=== PATIENT | female | born 1990 | race Caucasian/White ===

== ENCOUNTER 2016-05-20 01:19 | Inpatient (IN) | payer BC ==
[2016-05-20] MEDS ORDERED: TERBUTALINE 1 MG/ML VIAL SQ PRN (01:46)
[2016-05-20] MEDS ORDERED: OXYTOCIN 10 UNIT/ML 1 ML VIAL IM PRN (01:46)
[2016-05-20] MEDS ORDERED: CARBOPROST TROMETHAMINE 250 MCG/ML 1 ML AMP IM PRN (01:46)
[2016-05-20] MEDS ORDERED: METHYLERGONOVINE 0.2 MG/ML 1 ML AMP IM PRN (01:46)
[2016-05-20] MEDS ORDERED: LIDOCAINE 1% (PF) 10 MG/ML (30 ML SDV) SQ PRN (01:46)
[2016-05-20 01:56] VITALS: BMI 33.8
[2016-05-20] MEDS: LACTATED RINGERS 1,000 ML IV SCH ×2 (02:17→20:13)
[2016-05-20 02:35] LABS: Basophils # (A) 0.1 k/uL (0-0.2); Basophils % (A) 0 %; CHCM 33.6; Eosinophils # (A) 0.1 k/uL (0-0.7); Eosinophils % (A) 1 %; HDW 2.61; HGB 15.1 gm/dL (11.4-16.0); Luc # (Auto) 0.31; Luc % (Auto) 2; Lymphocytes # (A) 1.4 k/uL (1.0-4.8); Lymphocytes % (A) 10 %; MCH 30.5 pg (25.0-35.0); MCHC 32.8 g/dL (31.0-37.0); MCV 92.9 fL (80.0-100.0); Mean Platelet Volume 8.6; Monocytes # (A) 0.8 k/uL (0-1.0); Monocytes % (A) 6 %; Neutrophils # (A) 11.5 k/uL (1.3-7.7); Neutrophils % (A) 81 %; RBC 4.95 m/uL (3.80-5.40); RDW 13.3 % (11.5-15.5); WBC 14.2 k/uL (3.8-10.6)
[2016-05-20] MEDS ORDERED: BUTORPHANOL 1 MG/ML 1 ML VIAL IV PRN (03:10)
--- NOTE | 2016-05-20 04:05 | P.HPOB ---
History of Present Illness H&P Date: 05/20/16 Chief Complaint: Strong regular uterine contractions This is a 25-year-old white female 5 para 2012 EDC 06/02/2016 at 38 and one sevenths weeks. Patient presents with increased perineal pressure and strong regular uterine contractions. She denies vaginal bleeding or fluid leakage. She states fetus is been active throughout the . history blood type is O-, broke and received. Rubella immune. Be strep cultures negative. HIV testing, hepatitis B surface antigen, gonorrhea and chlamydia cultures, urine culture all negative. One-hour Glucola 82. Past surgical history is significant for low transverse section 2014 for nonreassuring heart tones. Past medical history is negative. ALLERGIES none known. Current medications vitamins daily. Family history is negative for significant disease. Reproductive history is significant for spontaneous vaginal delivery 2008, ectopic treated with methotrexate 2012, spontaneous AB 2013, low transverse section 2014. Social history patient is single, her boyfriend Bryson is present and involved, she is a flexographic press operator for a [employer], she is a nonsmoker and denies alcohol or drug use. On exam this is a pleasant white female, 5 foot 2 inches, 185 pounds, admission blood pressure 141/83. Vital signs are stable and she is afebrile. The general physical exam is within normal limits. The cervix at time of this dictation is 9 cm dilated, 90% effaced, -1 station, vertex presentation. Artificial amniorrhexis reveals clear fluid. heart rate is in the 130s to 140s with frequent accelerations, consistent with reactive NST. Impression: 38 and one sevenths weeks intrauterine , active spontaneous labor, Rh- status, previous choosing . All signs currently reassuring. Plan: Continue close maternal and surveillance. Anticipate vaginal after . Review of Systems See dictation under HPI,. Constitutional: Reports as per HPI Past Medical History Past Medical History: No Reported History History of Any Multi-Drug Resistant Organisms: None Reported Past Surgical History: Section Past Anesthesia/Blood Transfusion Reactions: No Reported Reaction Past Psychological History: No Psychological Hx Reported Smoking Status: Never smoker Past Alcohol Use History: None Reported Past Drug Use History: None Reported - Past Family History Mother Family Medical History: No Reported History Medications and Allergies Allergies Allergy/AdvReac Type Severity Reaction Status Date / Time No Known Allergies Allergy Verified 05/20/16 01:46 Exam - Vital Signs Vital signs: Vital Signs Temp Pulse Resp BP Pulse Ox 05/20/16 02:45 97.2 F L 84 19 141/83 98 05/20/16 01:48 97.2 F L 84 19 141/83 Intake and Output 05/19/16 05/19/16 05/20/16 14:59 22:59 06:59 Other: Weight 83.915 kg Patient Weight 05/20/16 06:59 Weight 83.915 kg See dictation HBIG, please Results Result Diagrams: 05/20/16 02:18 Abnormal Lab Results - Last 24 Hours (Table) 05/20/16 Range/Units 02:18 WBC 14.2 H (3.8-10.6) k/uL Neutrophils # 11.5 H (1.3-7.7) k/uL Assessment and Plan Plan: Continue close maternal and surveillance. Patient is declining option for analgesia. Anticipating vaginal after . Time with Patient: Less than 30
[2016-05-20] MEDS ORDERED: SIMETHICONE 80 MG CHEWABLE PO PRN (05:01)
[2016-05-20] MEDS ORDERED: diphenhydrAMINE 50 MG CAP PO PRN (05:01)
[2016-05-20] MEDS ORDERED: ZOLPIDEM 5 MG TAB PO PRN (05:01)
[2016-05-20] MEDS ORDERED: WITCH HAZEL 1 EACH MED..PAD TOPICAL PRN (05:01)
[2016-05-20] MEDS ORDERED: HYDROCORTISONE 2.5% RECTAL CREAM 30 GM TUBE RECTAL PRN (05:01)
[2016-05-20] MEDS ORDERED: LANOLIN CREAM 5 GM TUBE TOPICAL PRN (05:01)
[2016-05-20] MEDS ORDERED: diphenhydrAMINE ELIXIR 25 MG/10 ML CUP PO PRN (05:01)
[2016-05-20] MEDS ORDERED: diphenhydrAMINE 25 MG CAP PO PRN (05:01)
[2016-05-20] MEDS ORDERED: ACETAMINOPHEN TAB 325 MG TAB PO PRN (05:01)
[2016-05-20] MEDS ORDERED: BENZOCAINE/MENTHOL SPRAY 1 GM/SPRAY AEROSOL TOPICAL PRN (05:01)
[2016-05-20] MEDS ORDERED: diphenhydrAMINE 50 MG/ML 1 ML VIAL IVP PRN ×2 (05:01)
--- NOTE | 2016-05-20 05:01 | P.PROBDLV ---
Vaginal Delivery Note - . Vaginal Delivery Note: This is a 25-year-old white female 5 para 20-2 EDC 06/02/2016 at 38 and one sevenths weeks' gestation. Patient presented with strong regular uterine contractions and pelvic pressure. She was judged to be in active labor. was essentially unremarkable, Rh- status noted, broke and received, group B strep cultures negative, rubella status immune. Please see my dictated H&P for details. Artificial amniorrhexis revealed clear fluid. She was offered but declined any analgesic options. No oxytocin was needed. She progressed well through the first stage of labor and was judged to be completely dilated at 0432 hours. She began the second stage of labor at that time. Perineal body was prepped and draped in usual sterile fashion. With good maternal expulsive efforts the head was delivered occiput anterior. He restituted accordingly. There was a nuchal cord 2 that was reduced on the perineal body. The left or anterior shoulder was then delivered from underneath the pubic symphysis at which time the oropharynx, nasopharynx, and external nares were all bulb suctioned thoroughly. Patient was delivered of a liveborn female infant at 0438 hours. Umbilical cord was doubly clamped and ligated, he was handed to waiting nurses for evaluation where scores of 8 and 9 at one and 5 minutes respectively were given. The placenta delivered spontaneously, it was inspected and noted to be intact with trivascular cord at 0443 hours. At this time the perineal body was redraped. Inspection of the cervix, vagina, perineum, periurethral, and perirectal areas revealed a small first-degree right labial laceration. This was repaired in the usual fashion using 3-0 Vicryl suture for excellent reapproximation. Fundus is firm and in the midline , symmetric and 18 week size upon completion of delivery. Estimated blood loss 400 mL's. Infant weighed 3-40 g or 7 lbs. 2 oz. All sponge, needle and instrument counts are correct at the end of the procedure. Patient and her boyfriend are requesting circumcision further son. Successful VBACs noted.
[2016-05-20] MEDS: OXYTOCIN 30 UNITS/500 ML NS 30 UNIT in SALINE 1 500ML.BAG IV SCH ×2 (05:24→20:11)
[2016-05-20] MEDS: IBUPROFEN 600 MG TAB PO PRN ×3 (09:29→22:21)
[2016-05-20] MEDS: SENNOSIDES-DOCUSATE SODIUM 1 EACH TAB PO SCH ×2 (09:58→20:14)
[2016-05-20] MEDS: Acetaminophen-Codeine 300-30mg TAB PO PRN ×2 (12:36→18:06)
[2016-05-21] MEDS: Acetaminophen-Codeine 300-30mg TAB PO PRN (04:25)
--- NOTE | 2016-05-21 11:15 | P.PNOBGVD ---
Subjective - Subjective Patient reports: Reports appetite normal, Reports voiding normally, Reports pain well controlled, Reports ambulating normally : doing well, nursing well Objective - Latest Vital Signs Latest vital signs: Vital Signs Temp Pulse Resp BP Pulse Ox 05/21/16 08:00 98.3 F 110 H 20 122/75 98 05/20/16 23:32 97.8 F 81 16 113/61 05/20/16 15:30 98.3 F 95 127 H 127/82 05/20/16 12:00 98.1 F 87 16 Intake and Output 05/20/16 05/21/16 05/21/16 22:59 06:59 14:59 Intake Total 240 Balance 240 Intake: Oral 240 - Exam Lungs: bilateral: normal Chest: Normal S1, Normal S2 Extremities: Present: normal Abdomen: Present: normal appearance, soft Uterus: Present: normal, firm (The uterine fundus is tonic and nontender at the umbilicus.) Assessment and Plan (1) (normal spontaneous vaginal delivery) Current Visit: Yes Status: Acute Code(s): O80 - ENCOUNTER FOR FULL-TERM UNCOMPLICATED DELIVERY SNOMED Code(s): 47156275 (2) , delivered Narrative/Plan: We will plan discharge later today assuming the infant is released. Continue routine care. Current Visit: Yes Status: Acute Code(s): O34.219 - MATERNAL CARE FOR UNSP TYPE SCAR FROM PREVIOUS DEL SNOMED Code(s): 947996991
--- NOTE | 2016-05-21 11:20 | P.DS ---
Providers Date of admission: 05/20/16 01:27 Expected date of discharge: 05/21/16 Attending physician: Wilian Hamm Primary care physician: Stated None - Discharge Diagnosis(es) (1) (normal spontaneous vaginal delivery) Current Visit: Yes Status: Acute (2) , delivered Current Visit: Yes Status: Acute Hospital Course: The patient is a 25-year-old 5 para 2012 admitted at 38 and one sevenths weeks by good dating parameters perches admitted in early active labor with all signs reassuring. Her has been uncomplicated though she does have a history of previous section and requested vaginal trial of labor having had one successful vaginal delivery preceding the section.. On labor and delivery, she had artificial rupture of membranes for clear fluid and made fairly rapid progress through the active phase of labor to complete. She pushed to a normal spontaneous vaginal delivery, successful : over the course of approximate 5 minutes and delivered a viable 7 lbs. 2 oz. baby boy with Apgars of 8 at 1 minute and 9 at 5 minutes. Her course was entirely unremarkable vital signs remained stable and her temperature was afebrile throughout. She was deemed stable for discharge by day #1 was discharged home to follow-up in the office in 6 weeks' time routinely. Discharge instructions included calling for any significantly increased bleeding or foul-smelling lochia, significantly increased fever or abdominal pain, perineal complaints, breast complaints, or anything else that concerned her. She was additionally instructed to have nothing in the vagina for at least 6 weeks time to include intercourse. She understood her instructions and agrees to follow up as noted above. Discharge medications included continued vitamins as she has opted to breast-feed. She additionally was to use [id number] analgesic pain medications as needed. Maternal blood type is O- and cord blood was sent for evaluation for the necessity of RhoGAM prior to discharge. Rubella status is immune. Procedures: #1. Artificial rupture of membranes #2. Normal spontaneous vaginal delivery Patient Condition at Discharge: Good Plan - Discharge Summary Discharge Medication List Rfw-Kryo-Mqheh Acid [-U Capsule] 1 each PO DAILY #30 cap [Rx] Follow up Appointment(s)/Referral(s): Wilian Hamm MD [STAFF PHYSICIAN] - 6 Weeks Discharge Disposition: HOME SELF-CARE
[2016-05-21] MEDS: SENNOSIDES-DOCUSATE SODIUM 1 EACH TAB PO SCH (17:09)
[2016-05-22 00:48] VITALS: RESP 16
[2016-05-22] MEDS: SENNOSIDES-DOCUSATE SODIUM 1 EACH TAB PO SCH ×2 (00:49→08:34)
[2016-05-22 08:53] VITALS: BP 118/58; PULSE 78; TEMP 97.3
--- NOTE | 2016-05-22 12:32 | P.PNOBGVD ---
Subjective - Subjective Patient reports: Reports appetite normal, Reports voiding normally, Reports pain well controlled, Reports ambulating normally [place]: doing well Objective - Latest Vital Signs Latest vital signs: Vital Signs Temp Pulse Resp BP Pulse Ox 05/22/16 08:00 97.3 F L 78 16 118/58 05/22/16 00:00 98.3 F 86 16 115/72 05/21/16 16:00 99.2 F 100 20 117/61 95 - Exam Lungs: bilateral: normal Chest: Normal S1, Normal S2 Extremities: Present: normal Abdomen: Present: normal appearance, soft Uterus: Present: normal, firm (Uterine fundus is tonic and nontender around the umbilicus.) Assessment and Plan (1) (normal spontaneous vaginal delivery) Current Visit: Yes Status: Acute Code(s): O80 - ENCOUNTER FOR FULL-TERM UNCOMPLICATED DELIVERY SNOMED Code(s): 40413040 (2) , delivered Narrative/Plan: The patient was scheduled to be discharged yesterday. However, the infant was kept in the hospital secondary to elevated bilirubin leading to delay of the patient's discharge until today. All of the dictation and instructions in the discharge summary still pertain with a new discharge date of 05/22/2016. She will continue to have routine care and be discharged later today as previously documented. The infant may require continuing with a bili blanket in the outpatient setting. Current Visit: Yes Status: Acute Code(s): O34.219 - MATERNAL CARE FOR UNSP TYPE SCAR FROM PREVIOUS DEL SNOMED Code(s): 059021308
== END 2016-05-22 18:30 | disposition home or self-care (01) | DRG 775 ==
LOC: FBPOP 01:19 → 4FBP 01:27
PROVIDERS: ADMIT Obstetrics & Gynecology; ATTEND Obstetrics & Gynecology
PROC: 10E0XZZ Delivery of Products of Conception, External Approach (ICD-10-PCS; principal; 2016-05-20)
PROC: 10907ZC Drainage of Amniotic Fluid, Therapeutic from Products of Conception, Via Natural or Artificial Opening (ICD-10-PCS; 2016-05-20)
PROC: 0HQ9XZZ Repair Perineum Skin, External Approach (ICD-10-PCS; 2016-05-20)
DX: O70.0 First degree perineal laceration during delivery (principal); N85.8 Other specified noninflammatory disorders of uterus; O34.211 Maternal care for low transverse scar from previous cesarean delivery; O69.81X0 Labor and delivery complicated by cord around neck, without compression, not applicable or unspecified; Z3A.38 38 weeks gestation of pregnancy; Z37.0 Single live birth
CPT/HCPCS: 85025; 86850; 86870; 86880; 86900; 86901; 88307

== ENCOUNTER 2016-06-25 17:36 | Observation (INO) | payer BC, OTHER ==
[2016-06-25] MEDS ORDERED: SODIUM CHLORIDE 0.9% 1,000 ML IV STA (18:03)
[2016-06-25] MEDS ORDERED: KETOROLAC 30 MG/ML 1 ML VIAL IVP STA (18:03)
[2016-06-25] MEDS ORDERED: ONDANSETRON 4 MG/2 ML VIAL IVP STA (18:03)
--- NOTE | 2016-06-25 18:07 | ED ---
Abdominal Pain HPI <Neeraj Milton - Last Filed: 06/25/16 21:32> - General Source: patient, RN notes reviewed, old records reviewed Mode of arrival: ambulatory Limitations: no limitations <Shawanda Fu - Last Filed: 06/26/16 03:46> - General Chief Complaint: Abdominal Pain Stated Complaint: abd pain Time Seen by Provider: 06/25/16 17:44 - History of Present Illness Initial Comments: This is a 25-year-old female chief complaint of right upper quadrant epigastric abdominal pain intermittently for the past few months. Patient reports that over the past 2 weeks and more severe. She states that is not related to eating. She states she'll feel like a sharp stabbing pain for approximately an hour and then will ease up. Patient states that she's had this pain before when she was . She reports that she had an ultrasound which was negative at that time. She states that they stated it was a limited study due to the fact that she was . Patient states that she has had chills. Patient states she feels nauseated and has had some episodes of vomiting. Denies any diarrhea or change in bowel movements or dysuria. (Shawanda Fu) - Related Data Home Medications Medication Instructions Recorded Confirmed Mqp-Vzzc-Zujni Acid 1 cap PO DAILY 06/25/16 06/25/16 [-U Capsule (formulary)] Allergies Allergy/AdvReac Type Severity Reaction Status Date / Time No Known Allergies Allergy Verified 06/25/16 17:55 Review of Systems ROS Other: All systems not noted in ROS Statement are negative. <Neeraj Milton - Last Filed: 06/25/16 21:32> ROS Other: All systems not noted in ROS Statement are negative. <Shawanda Fu - Last Filed: 06/26/16 03:46> ROS Statement: Those systems with pertinent positive or pertinent negative responses have been documented in the HPI. Past Medical History Past Medical History: No Reported History History of Any Multi-Drug Resistant Organisms: None Reported Past Surgical History: Section Past Anesthesia/Blood Transfusion Reactions: No Reported Reaction Past Psychological History: No Psychological Hx Reported Smoking Status: Never smoker Past Alcohol Use History: None Reported Past Drug Use History: None Reported - Past Family History Mother Family Medical History: No Reported History <Shawanda Fu - Last Filed: 06/26/16 03:46> General Exam <Neeraj Milton - Last Filed: 06/25/16 21:32> Limitations: no limitations General appearance: alert, in no apparent distress Head exam: Present: atraumatic, normocephalic, normal inspection Eye exam: Present: normal appearance, PERRL, EOMI. Absent: scleral icterus, conjunctival injection, periorbital swelling ENT exam: Present: normal exam, mucous membranes moist Neck exam: Present: normal inspection. Absent: tenderness, meningismus, lymphadenopathy Respiratory exam: Present: normal lung sounds bilaterally. Absent: respiratory distress, wheezes, rales, rhonchi, stridor Cardiovascular Exam: Present: regular rate, normal rhythm, normal heart sounds. Absent: systolic murmur, diastolic murmur, rubs, gallop, clicks GI/Abdominal exam: Present: soft, tenderness (Patient has epigastric and right upper quadrant tenderness.), normal bowel sounds. Absent: distended, guarding, rebound, rigid Extremities exam: Present: normal inspection, full ROM, normal capillary refill. Absent: tenderness, pedal edema, joint swelling, calf tenderness Back exam: Present: normal inspection Neurological exam: Present: alert, oriented X3, CN II-XII intact Psychiatric exam: Present: normal affect, normal mood Skin exam: Present: warm, dry, intact, normal color. Absent: rash <Shawanda Fu - Last Filed: 06/26/16 03:46> - General Exam Comments Initial Comments: Pleasant 25-year-old female. No distress. (Shawanda Fu) Course <Neeraj Milton - Last Filed: 06/25/16 21:32> <Shawanda Fu - Last Filed: 06/26/16 03:46> Vital Signs 06/25/16 06/25/16 06/25/16 17:45 19:22 20:45 Temperature 97.8 F 98.6 F 98.6 F Pulse Rate 82 76 75 Respiratory 16 18 18 Rate Blood Pressure 130/65 119/69 122/70 O2 Sat by Pulse 98 96 89 L Oximetry 06/25/16 21:54 Temperature 98.7 F Pulse Rate 68 Respiratory 18 Rate Blood Pressure 139/66 O2 Sat by Pulse 98 Oximetry - Reevaluation(s) Reevaluation #1: 06/25/16 21:35 Vision is reevaluated in one of her results. Patient reports that she doesn't have any pain at this time. Discussed with her admission and starting on IV antibiotics. I also discussed consult surgery and having her gallbladder removed. (Shawanda Fu) Medical Decision Making - Lab Data Result diagrams: 06/25/16 18:30 06/25/16 18:30 <Neeraj Milton - Last Filed: 06/25/16 21:32> - Lab Data Result diagrams: 06/25/16 18:30 06/25/16 18:30 - Radiology Data Radiology results: report reviewed <Shawanda Fu - Last Filed: 06/26/16 03:46> - Medical Decision Making Medical decision-making. Patient's white count is 14.5 hemoglobin 15.9 hematocrit 47.6. Temp 98.6. Patient's potassium is 4.1 BUN 15 creatinine 0.83 with a GFR greater than 60. The patient's total bilirubin is normal at 0.8 but the AST is 150 ALT is 100 alk phos is 204. Glucose 91. Amylase lipase within normal limits. Patient is not . Though she did deliver a baby 3 weeks ago. Patient's had abdominal pain to right upper quadrant with nausea and occasional vomiting for the past week this also occurred prior prior to this week. Ultrasound shows cholelithiasis without evidence of cholecystitis. Common bile duct 0.5. The case discussed with Dr. Dr. Desouza, on-call general surgeon patient be admitted his service for evaluation. She will be started on Zosyn. Dr. Milton (Neeraj Milton) This is a 25-year-old female chief complaint of intermittent right upper quadrant epigastric pain. She states that the pain has became more severe within the past 2 weeks. She did have a child within the last month. Patient right upper quadrant ultrasound does show cholelithiasis without evidence of cholecystitis. She does have an elevated white count of 14.5. Patient will be started on Zosyn. Discussed case with Dr. Milton and we will admit the patient to Dr. Desouza the on-call surgeon. Patient agrees with the admission and understands the treatment plan. (Shawanda Fu) - Lab Data Lab Results 06/25/16 06/25/16 06/25/16 Range/Units 18:30 18:30 18:30 WBC 14.5 H (3.8-10.6) k/uL RBC 5.39 (3.80-5.40) m/uL Hgb 15.9 (11.4-16.0) gm/dL Hct 47.6 H (34.0-46.0) % MCV 88.2 (80.0-100.0) fL MCH 29.5 (25.0-35.0) pg MCHC 33.4 (31.0-37.0) g/dL RDW 12.4 (11.5-15.5) % Plt Count 292 (150-450) k/uL Neutrophils % 81 % Lymphocytes % 12 % Monocytes % 5 % Eosinophils % 1 % Basophils % 0 % Neutrophils # 11.7 H (1.3-7.7) k/uL Lymphocytes # 1.8 (1.0-4.8) k/uL Monocytes # 0.8 (0-1.0) k/uL Eosinophils # 0.1 (0-0.7) k/uL Basophils # 0.0 (0-0.2) k/uL Sodium 141 (137-145) mmol/L Potassium 4.1 (3.5-5.1) mmol/L Chloride 103 (98-107) mmol/L Carbon Dioxide 31 H (22-30) mmol/L Anion Gap 7 mmol/L BUN 15 (7-17) mg/dL Creatinine 0.83 (0.52-1.04) mg/dL Est GFR (MDRD) Af Amer >60 (>60 ml/min/1.73 sqM) Est GFR (MDRD) Non-Af >60 (>60 ml/min/1.73 sqM) Glucose 91 (74-99) mg/dL Calcium 9.4 (8.4-10.2) mg/dL Total Bilirubin 0.8 (0.2-1.3) mg/dL AST 153 H (14-36) U/L ALT 100 H (9-52) U/L Alkaline Phosphatase 204 H (38-126) U/L Total Protein 7.5 (6.3-8.2) g/dL Albumin 3.7 (3.5-5.0) g/dL Amylase 56 (30-110) U/L Lipase 67 (23-300) U/L Urine Color Yellow Urine Appearance Clear (Clear) Urine pH 6.0 (5.0-8.0) Ur Specific [place] 1.018 (1.001-1.035) Urine Protein Trace H (Negative) Urine Glucose (UA) Negative (Negative) Urine Ketones Negative (Negative) Urine Blood Trace H (Negative) Urine Nitrite Negative (Negative) Urine Bilirubin Negative (Negative) Urine Urobilinogen <2.0 (<2.0) mg/dL Ur Leukocyte Esterase Moderate H (Negative) Urine RBC 3 (0-5) /hpf Urine WBC 8 H (0-5) /hpf Ur Squamous Epith Cells 3 (0-4) /hpf Urine Mucus Rare H (None) /hpf Urine HCG, Qual (Not Detectd) 06/25/16 Range/Units 18:30 WBC (3.8-10.6) k/uL RBC (3.80-5.40) m/uL Hgb (11.4-16.0) gm/dL Hct (34.0-46.0) % MCV (80.0-100.0) fL MCH (25.0-35.0) pg MCHC (31.0-37.0) g/dL RDW (11.5-15.5) % Plt Count (150-450) k/uL Neutrophils % % Lymphocytes % % Monocytes % % Eosinophils % % Basophils % % Neutrophils # (1.3-7.7) k/uL Lymphocytes # (1.0-4.8) k/uL Monocytes # (0-1.0) k/uL Eosinophils # (0-0.7) k/uL Basophils # (0-0.2) k/uL Sodium (137-145) mmol/L Potassium (3.5-5.1) mmol/L Chloride (98-107) mmol/L Carbon Dioxide (22-30) mmol/L Anion Gap mmol/L BUN (7-17) mg/dL Creatinine (0.52-1.04) mg/dL Est GFR (MDRD) Af Amer (>60 ml/min/1.73 sqM) Est GFR (MDRD) Non-Af (>60 ml/min/1.73 sqM) Glucose (74-99) mg/dL Calcium (8.4-10.2) mg/dL Total Bilirubin (0.2-1.3) mg/dL AST (14-36) U/L ALT (9-52) U/L Alkaline Phosphatase (38-126) U/L Total Protein (6.3-8.2) g/dL Albumin (3.5-5.0) g/dL Amylase (30-110) U/L Lipase (23-300) U/L Urine Color Urine Appearance (Clear) Urine pH (5.0-8.0) Ur Specific [place] (1.001-1.035) Urine Protein (Negative) Urine Glucose (UA) (Negative) Urine Ketones (Negative) Urine Blood (Negative) Urine Nitrite (Negative) Urine Bilirubin (Negative) Urine Urobilinogen (<2.0) mg/dL Ur Leukocyte Esterase (Negative) Urine RBC (0-5) /hpf Urine WBC (0-5) /hpf Ur Squamous Epith Cells (0-4) /hpf Urine Mucus (None) /hpf Urine HCG, Qual Not Detected (Not Detectd) - Radiology Data KUB is negative for any acute results. Right upper quadrant ultrasound does show evidence of cholelithiasis. (Shawanda Fu) Disposition <Neeraj Milton - Last Filed: 06/25/16 21:32> Time of Disposition: 21:37 <Shawanda Fu - Last Filed: 06/26/16 03:46> Clinical Impression: Cholelithiasis, RUQ pain, Leukocytosis Disposition: ADMITTED IP TO THIS [facility] Condition: Stable
[2016-06-25 18:59] LABS: Basophils % (A) 0 %; CH 30.5; CHCM 34.7; Eosinophils # (A) 0.1 k/uL (0-0.7); Eosinophils % (A) 1 %; HCT 47.6 % (34.0-46.0); HDW 2.37; HGB 15.9 gm/dL (11.4-16.0); Luc # (Auto) 0.16; Luc % (Auto) 1; Lymphocytes # (A) 1.8 k/uL (1.0-4.8); Lymphocytes % (A) 12 %; MCH 29.5 pg (25.0-35.0); MCHC 33.4 g/dL (31.0-37.0); MCV 88.2 fL (80.0-100.0); Mean Platelet Volume 6.1; Monocytes # (A) 0.8 k/uL (0-1.0); Monocytes % (A) 5 %; Neutrophils # (A) 11.7 k/uL (1.3-7.7); Neutrophils % (A) 81 %; RBC 5.39 m/uL (3.80-5.40); RDW 12.4 % (11.5-15.5); WBC 14.5 k/uL (3.8-10.6); WBC (Perox) 14.27
[2016-06-25 19:04] LABS: Appearance,Urine Clear (Clear); Bilirubin,Urine Negative (Negative); Glucose,Urine (UA) Negative (Negative); Ketones,Urine Negative (Negative); Leukocyte Esterase,Urine Moderate (Negative); Mucus,Urine Rare /hpf; Nitrite,Urine Negative (Negative); Particle Count 3068; Protein,Urine Trace (Negative); RBC,Urine 3 /hpf (0-5); Specific Gravity,Urine 1.018 (1.001-1.035); Squamous Epithelial Cell,Urine 3 /hpf (0-4); UA Billing (MACRO vs. MICRO) MICRO; Urobilinogen,Urine <2.0 mg/dL (<2.0); WBC,Urine 8 /hpf (0-5)
[2016-06-25 19:19] LABS: ALT 100 U/L (9-52); AST 153 U/L (14-36); Alkaline Phosphatase 204 U/L (38-126); Amylase 56 U/L (30-110); Anion Gap 7 mmol/L; Blood Urea Nitrogen 15 mg/dL (7-17); Calcium 9.4 mg/dL (8.4-10.2); Carbon Dioxide 31 mmol/L (22-30); Chloride 103 mmol/L (98-107); Glucose 91 mg/dL (74-99); Non-African American GFR(MDRD) >60 (>60 ml/min/1.73 sqM); Potassium 4.1 mmol/L (3.5-5.1); Sodium 141 mmol/L (137-145); Total Bilirubin 0.8 mg/dL (0.2-1.3); Total Protein 7.5 g/dL (6.3-8.2)
--- NOTE | 2016-06-25 20:06 | XR ---
EXAMINATION TYPE: XR KUB DATE OF EXAM: 06/25/2016 7:46 PM COMPARISON: NONE INDICATION: Abdomen pain TECHNIQUE: Single view abdomen upright view FINDINGS: There is a normal bowel gas pattern. Psoas margins are normal. No organomegaly is present. There is mild scoliosis within the lumbar spine. IMPRESSION: 1. Unremarkable Abdomen
--- NOTE | 2016-06-25 21:22 | US ---
EXAMINATION TYPE: US gallbladder DATE OF EXAM: 06/25/2016 7:12 PM COMPARISON: NONE CLINICAL HISTORY: Pain. EXAM MEASUREMENTS: Liver Length: 15.6 cm Gallbladder Wall: 0.2 cm CBD: 0.5 cm Right Kidney: 11.9 x 4.0 x 4.6 cm Pancreas: Tail obscured by overlying bowel gas Liver: wnl Gallbladder: cholelithiasis, no wall thickening Evidence for sonographic Gutierrez's sign: no CBD: wnl Right Kidney: wnl IMPRESSION: 1. Cholelithiasis without evidence of acute cholecystitis.
[2016-06-25] MEDS ORDERED: PIPERACILLIN-TAZOBACTAM 3.375 GM in DEXTROSE/WATER 1 50ML.BAG IVPB STA (21:26)
[2016-06-25] MEDS ORDERED: HYDROmorphone 1 MG/ML 1 ML SYRINGE IV PRN (21:39)
[2016-06-25] MEDS ORDERED: KETOROLAC 30 MG/ML 1 ML VIAL IVP PRN (21:39)
[2016-06-25] MEDS ORDERED: NALOXONE 0.4 MG/ML 1 ML VIAL IV PRN (21:39)
[2016-06-25] MEDS: SODIUM CHLORIDE 0.9% 1,000 ML IV SCH (21:51)
[2016-06-25 22:27] VITALS: BMI 29.2
[2016-06-26] MEDS: PIPERACILLIN-TAZOBACTAM 3.375 GM in DEXTROSE/WATER 1 50ML.BAG IVPB SCH ×2 (08:21→16:54)
[2016-06-26 09:05] LABS: Basophils # (A) 0.1 k/uL (0-0.2); Basophils % (A) 1 %; CHCM 33.3; Eosinophils # (A) 0.2 k/uL (0-0.7); Eosinophils % (A) 3 %; HCT 46.5 % (34.0-46.0); HDW 2.36; HGB 15.2 gm/dL (11.4-16.0); Luc # (Auto) 0.18; Luc % (Auto) 2; Lymphocytes # (A) 2.1 k/uL (1.0-4.8); Lymphocytes % (A) 24 %; MCH 29.6 pg (25.0-35.0); MCHC 32.7 g/dL (31.0-37.0); MCV 90.5 fL (80.0-100.0); Mean Platelet Volume 6.4; Monocytes # (A) 0.6 k/uL (0-1.0); Monocytes % (A) 7 %; Neutrophils # (A) 5.5 k/uL (1.3-7.7); Neutrophils % (A) 63 %; RBC 5.14 m/uL (3.80-5.40); RDW 12.4 % (11.5-15.5); WBC 8.7 k/uL (3.8-10.6); WBC (Perox) 8.34
--- NOTE | 2016-06-26 09:14 | P.HPIM ---
History of Present Illness H&P Date: 06/26/16 Chief Complaint: Right upper quadrant abdominal pain The patient is a 25 white female who's had intermittent upper abdominal pain mostly epigastric right upper quadrant with some radiation to the back off and on for several years now. Worse over the last week or 2. She did have a baby by normal delivery of the 5 weeks ago. Some nausea. Ultrasound showed cholelithiasis. No evidence of acute cholecystitis radiographically. Past history otherwise healthy. C/ Section with her second child. ALLERGIES none known Social history nonsmoker denies alcohol. Family history positive for gallbladder disease in her mother and aunt. Systems review reviewed. Otherwise essentially negative other than above. No cardiac or respiratory problems. No vaginal discharge. No urinary symptoms. On examination the patient is well-built well-nourished in no acute distress at this time pain has somewhat resolved resolved to improve. She is a little overweight with a BMI of 29.3. She is anicteric hydration satisfactory color is good. Vitals are normal. No fever. Head and neck are normal. Heart lungs are clear. Abdomen is quite soft with minimal epigastric tenderness. No guarding or rebound. No mass or organomegaly. No hernias. Has well-healed scar. INSTRUMENT MAKER intact. Impression cholelithiasis with the acute biliary colic chronic cholecystitis. Recommendation patient will be admitted with IV fluids liquid diet antibiotics and proceed with the laparoscopic cholecystectomy possible open and the next day or so. Will R recheck this WBC which was elevated as well as her LFTs were mildly elevated although bilirubin was normal. Past Medical History Past Medical History: No Reported History History of Any Multi-Drug Resistant Organisms: None Reported Past Surgical History: Section Past Anesthesia/Blood Transfusion Reactions: No Reported Reaction Past Psychological History: No Psychological Hx Reported Smoking Status: Never smoker Past Alcohol Use History: None Reported Past Drug Use History: None Reported - Past Family History Mother Family Medical History: No Reported History Medications and Allergies Home Medications Medication Instructions Recorded Confirmed Type [id number]-[id number]-[id number] Acid 1 cap PO DAILY 06/25/16 06/25/16 History [-U Capsule (formulary)] Allergies Allergy/AdvReac Type Severity Reaction Status Date / Time No Known Allergies Allergy Verified 06/25/16 17:55 Physical Exam Vitals: Vital Signs Temp Pulse Pulse Resp BP BP Pulse Ox 06/26/16 06:47 97 F L 64 14 102/63 97 06/25/16 23:52 97 F L 64 14 102/63 97 06/25/16 23:01 16 06/25/16 23:00 97.1 F L 65 16 122/70 96 06/25/16 22:15 98.1 F 75 16 118/68 95 06/25/16 21:54 98.7 F 68 18 139/66 98 Intake and Output 06/25/16 06/26/16 06/26/16 22:59 06:59 14:59 Other: Voiding Method Toilet # Voids 1 Weight 72.575 kg Results CBC & Chem 7: 06/26/16 08:48 06/25/16 18:30 Labs: Abnormal Lab Results - Last 24 Hours (Table) 06/26/16 Range/Units 08:48 Hct 46.5 H (34.0-46.0) % Thrombosis Risk Factor Assmnt - Choose All That Apply Any of the Below Risk Factors Present?: Yes Each Factor Represents 1 point: Obesity (BMI >25), or Other Risk Factors: No Thrombosis Risk Factor Assessment Total Risk Factor Score: 2 Thrombosis Risk Factor Assessment Level: Low Risk
[2016-06-26 09:18] LABS: ALT 134 U/L (9-52); AST 79 U/L (14-36); Alkaline Phosphatase 196 U/L (38-126); Anion Gap 7 mmol/L; Blood Urea Nitrogen 17 mg/dL (7-17); Calcium 9.1 mg/dL (8.4-10.2); Carbon Dioxide 26 mmol/L (22-30); Chloride 109 mmol/L (98-107); Glucose 84 mg/dL (74-99); Non-African American GFR(MDRD) >60 (>60 ml/min/1.73 sqM); Potassium 4.5 mmol/L (3.5-5.1); Sodium 142 mmol/L (137-145); Total Bilirubin 0.7 mg/dL (0.2-1.3); Total Protein 6.6 g/dL (6.3-8.2)
[2016-06-26] MEDS: PANTOPRAZOLE 40 MG/10 ML VIAL IV SCH (09:45)
[2016-06-26] MEDS: SODIUM CHLORIDE 0.9% 1,000 ML IV SCH (12:29)
[2016-06-26] MEDS: HEPARIN SODIUM,PORCINE 5,000 UNIT/ML 1 ML VIAL SQ SCH (21:36)
[2016-06-27] MEDS: PIPERACILLIN-TAZOBACTAM 3.375 GM in DEXTROSE/WATER 1 50ML.BAG IVPB SCH ×3 (00:38→16:01)
[2016-06-27] MEDS: SODIUM CHLORIDE 0.9% 1,000 ML IV SCH ×3 (00:42→14:41)
[2016-06-27] MEDS: HEPARIN SODIUM,PORCINE 5,000 UNIT/ML 1 ML VIAL SQ SCH ×2 (09:27→22:50)
[2016-06-27] MEDS: PANTOPRAZOLE 40 MG/10 ML VIAL IV SCH (09:31)
[2016-06-27] MEDS ORDERED: IV FLUID CONTINUATION 1,000 ML IV ONE ×5 (11:19→11:20)
[2016-06-27] MEDS ORDERED: NEOSTIGMINE 1 MG/ML 10 ML VIAL ONE (11:40)
[2016-06-27] MEDS ORDERED: MEPERIDINE 50 MG/ML SYRINGE ONE (11:40)
[2016-06-27] MEDS ORDERED: GLYCOPYRROLATE 0.2 MG/ML 2 ML VIAL ONE (11:40)
[2016-06-27] MEDS ORDERED: fentaNYL (PF) 50 MCG/ML 2 ML AMP ONE (11:40)
[2016-06-27] MEDS ORDERED: LIDOCAINE 1% INJ 10MG/ML (20 ML MDV) ONE (11:40)
[2016-06-27] MEDS ORDERED: KETOROLAC 30 MG/ML 1 ML VIAL ONE (11:40)
[2016-06-27] MEDS ORDERED: PROPOFOL 10 MG/ML 20 ML VIAL IV ONE (11:40)
[2016-06-27] MEDS ORDERED: MIDAZOLAM 2 MG/2 ML VIAL ONE (11:40)
[2016-06-27] MEDS ORDERED: ROCURONIUM BROMIDE 10 MG/ML 10 ML VIAL IV ONE (11:40)
[2016-06-27] MEDS ORDERED: SUCCINYLCHOLINE CHLORIDE 100 MG/5 ML SYR IV ONE (11:40)
[2016-06-27] MEDS ORDERED: LACTATED RINGERS 1,000 ML IV ONE (12:03)
[2016-06-27] MEDS ORDERED: BUPIVACAINE (PF) 0.25% 30 ML VIAL SQ ONE ×2 (12:09)
--- NOTE | 2016-06-27 12:56 | P.OP ---
Date of Procedure: 06/27/16 Preoperative Diagnosis: Cholelithiasis with acute on chronic cholecystitis Postoperative Diagnosis: Same Procedure(s) Performed: Laparoscopic cholecystectomy Anesthesia: GRIFFIN Surgeon: Francesco Desouza Estimated Blood Loss (ml): 25 Pathology: other (Gallbladder with stones) Condition: stable Disposition: PACU Indications for Procedure: Right upper quadrant pain with cholelithiasis acute cholecystitis with leukocytosis Operative Findings: Acute cholecystitis on chronic cholecystitis with cholelithiasis Description of Procedure: With the patient supine the under general endotracheal anesthesia the abdominal wall was prepped in the usual fashion and draped. Local anesthetic Marcaine 0.5 % plain was infiltrated into the skin and subcutaneous tissue just below the umbilicus where a small transverse incision was made. The fascia was exposed and retracted and infiltrated with the Marcaine and a Veress needle inserted under direct vision. The saline drop test was normal the peritoneal cavity was then inflated with carbon dioxide to pressure approximately 15 mm millimeters mercury the needle was replaced with a 10 mm trocar and the laparoscope inserted. 25 mm trochars were placed in the right upper quadrant and another 5 mm trocar in the epigastrium under direct vision under local anesthesia. Visual exploration revealed this mild to moderately distended gallbladder with mild inflammatory changes. The gallbladder was retracted. The area of the neck carefully dissected with omental adhesions to the gallbladder being February good hemostasis. The cystic duct was identified school he denies any junction with the gallbladder, duct well visualized the cystic duct was then triply clipped and divided as was the cystic artery. The gallbladder dissected from its bed and removed through the umbilical port site the abdomen Endo Catch bag. Upper and infrahepatic spaces were then thoroughly irrigated. Hemostasis was good and the field was dry. CO2 was evacuated. Fascial incision at the umbilicus closed with interrupted 0 Vicryl sutures after all trochars were removed. The skin incisions were closed with interrupted 4-0 Monocryl subcuticular sutures and Steri-Strips. Dressings were applied. Patient remained stable.
[2016-06-27] MEDS ORDERED: ONDANSETRON 4 MG/2 ML VIAL IVP PRN (13:01)
[2016-06-27] MEDS ORDERED: ONDANSETRON 4 MG/2 ML VIAL IVP ONE ×2 (13:13)
[2016-06-27] MEDS: HYDROmorphone 1 MG/ML 1 ML SYRINGE IVP ONE ×2 (13:24→13:46)
[2016-06-28] MEDS: SODIUM CHLORIDE 0.9% 1,000 ML IV SCH (00:26)
[2016-06-28] MEDS: PIPERACILLIN-TAZOBACTAM 3.375 GM in DEXTROSE/WATER 1 50ML.BAG IVPB SCH (00:26)
[2016-06-28 18:37] VITALS: BP 105/71; PULSE 71; RESP 16; TEMP 97.3
--- NOTE | 2016-07-08 12:26 | P.DS ---
Providers Date of admission: 06/25/16 21:34 Attending physician: Francesco Desouza Primary care physician: Stated None Patient Condition at Discharge: Stable Plan - Discharge Summary New Discharge Prescriptions: Hydrocodone/Acetaminophen [[place] 5-325] 1 each PO Q4HR PRN #20 tab PRN Reason: Moderate Pain Discharge Medication List Cbn-[id number]-Yveye Acid [-U Capsule (formulary)] 1 cap PO DAILY [History] Hydrocodone/Acetaminophen [[place] 5-325] 1 each PO Q4HR PRN #20 tab 06/27/16 [Rx] Follow up Appointment(s)/Referral(s): Francesco Desouza MD [STAFF PHYSICIAN] - 07/04/16 2:00 pm None,Stated [Primary Care Provider] - As Needed Activity/Diet/Wound Care/Special Instructions: Low fat diet, no heavy lifting for 9 to 10 days.. Remove dressings tomorrow am. May shower from dex am. Ambulate 4 to 5 times a day. Continue to use Incentive spirometery at home Call Dr for any fever, chills. increased pain not controlled with pain meds, redness or discolored drainage from puncture sites or any concerns. Discharge Disposition: HOME SELF-CARE
== END 2016-06-28 09:22 | disposition home or self-care (01) ==
LOC: EC 17:36 → 6PED 21:34
PROVIDERS: ADMIT Surgery; ATTEND Surgery
DX: K80.20 Calculus of gallbladder without cholecystitis without obstruction (principal); K80.12 Calculus of gallbladder with acute and chronic cholecystitis without obstruction
CPT/HCPCS: 47562; 96361 ×4; 96374 ×2; 96375 ×3; 99285 ×2; 96365; 96366 ×3; 96372 ×2; 96376; 36415; 81025 ×2; 88304; 80053 ×2; 82150; 83690; 85025 ×2; 81001; 87040; 74000; 76705; G0378 ×4; J2250; J1644 ×2; J2710; J2175; J2405 ×2; J2001; J3010; J1885 ×2; J1170; J2543 ×4; J0330; J2704; C9113 ×2

== ENCOUNTER 2017-04-15 14:19 | Emergency (ER) | payer BC, OTHER ==
[2017-04-15] MEDS ORDERED: Rhogam IMMUNE GLOBULIN 1,500 UNIT/1 ML IM ONE (14:57)
--- NOTE | 2017-04-15 14:59 | ED ---
Abdominal Pain HPI - General Chief Complaint: Abdominal Pain Stated Complaint: Abd pain Time Seen by Provider: 04/15/17 14:35 Source: patient, RN notes reviewed Mode of arrival: ambulatory Limitations: no limitations - History of Present Illness Initial Comments: 26-year-old female presents emergency Department chief complaint of abdominal discomfort, vaginal bleeding and early . Patient states she's had some discomfort last to 3 days but started bleeding today states that it was only a small spotting. Patient is A2. Patient's SENIOR PLANNER is Dr. Waggoner. She denies any nausea vomiting diarrhea constipation. Denies any dysuria or hematuria. - Related Data Home Medications Medication Instructions Recorded Confirmed No Known Home Medications [No 04/15/17 04/15/17 Known Home Medications] Allergies Allergy/AdvReac Type Severity Reaction Status Date / Time No Known Allergies Allergy Verified 04/15/17 14:37 Review of Systems ROS Statement: Those systems with pertinent positive or pertinent negative responses have been documented in the HPI. ROS Other: All systems not noted in ROS Statement are negative. Past Medical History Past Medical History: No Reported History History of Any Multi-Drug Resistant Organisms: None Reported Past Surgical History: Section, Cholecystectomy Past Anesthesia/Blood Transfusion Reactions: No Reported Reaction Past Psychological History: No Psychological Hx Reported Smoking Status: Never smoker Past Alcohol Use History: None Reported Past Drug Use History: None Reported - Past Family History Mother Family Medical History: No Reported History General Exam Limitations: no limitations General appearance: alert, in no apparent distress Head exam: Present: atraumatic, normocephalic, normal inspection Neck exam: Present: normal inspection. Absent: tenderness, meningismus, lymphadenopathy Respiratory exam: Present: normal lung sounds bilaterally. Absent: respiratory distress, wheezes, rales, rhonchi, stridor Cardiovascular Exam: Present: regular rate, normal rhythm, normal heart sounds. Absent: systolic murmur, diastolic murmur, rubs, gallop, clicks GI/Abdominal exam: Present: soft, normal bowel sounds. Absent: distended, tenderness, guarding, rebound, rigid Back exam: Absent: CVA tenderness (R), CVA tenderness (L) Skin exam: Present: warm, dry, intact, normal color. Absent: rash Course Vital Signs 04/15/17 04/15/17 14:25 17:02 Temperature 99.0 F 97.6 F Pulse Rate 90 94 Respiratory 20 18 Rate Blood Pressure 123/72 131/58 O2 Sat by Pulse 99 100 Oximetry Medical Decision Making - Medical Decision Making This a 26-year-old female presents emergency department for bleeding early . Ultrasound shows possible early gestational sac patient's HCG is only 219. Patient will have repeat PA hCG in 2 days she was informed that she was diagnosed with threatened miscarriage secondary to bleeding patient was given Rhogam since she is O-. - Lab Data Result diagrams: 04/15/17 15:16 04/15/17 15:16 Lab Results 04/15/17 04/15/17 04/15/17 Range/Units 15:16 15:16 15:16 WBC 11.7 H (3.8-10.6) k/uL RBC 5.53 H (3.80-5.40) m/uL Hgb 16.2 H (11.4-16.0) gm/dL Hct 47.3 H (34.0-46.0) % MCV 85.6 (80.0-100.0) fL MCH 29.3 (25.0-35.0) pg MCHC 34.2 (31.0-37.0) g/dL RDW 12.0 (11.5-15.5) % Plt Count 395 (150-450) k/uL Neutrophils % 70 % Lymphocytes % 22 % Monocytes % 5 % Eosinophils % 1 % Basophils % 1 % Neutrophils # 8.2 H (1.3-7.7) k/uL Lymphocytes # 2.5 (1.0-4.8) k/uL Monocytes # 0.6 (0-1.0) k/uL Eosinophils # 0.1 (0-0.7) k/uL Basophils # 0.1 (0-0.2) k/uL Sodium 140 (137-145) mmol/L Potassium 4.0 (3.5-5.1) mmol/L Chloride 101 (98-107) mmol/L Carbon Dioxide 29 (22-30) mmol/L Anion Gap 10 mmol/L BUN 12 (7-17) mg/dL Creatinine 0.74 (0.52-1.04) mg/dL Est GFR (MDRD) Af Amer >60 (>60 ml/min/1.73 sqM) Est GFR (MDRD) Non-Af >60 (>60 ml/min/1.73 sqM) Glucose 95 (74-99) mg/dL Calcium 10.0 (8.4-10.2) mg/dL HCG, Quant 216.6 mIU/mL Urine Color Urine Appearance (Clear) Urine pH (5.0-8.0) Ur Specific [place] (1.001-1.035) Urine Protein (Negative) Urine Glucose (UA) (Negative) Urine Ketones (Negative) Urine Blood (Negative) Urine Nitrite (Negative) Urine Bilirubin (Negative) Urine Urobilinogen (<2.0) mg/dL Ur Leukocyte Esterase (Negative) Urine RBC (0-5) /hpf Urine WBC (0-5) /hpf Ur Squamous Epith Cells (0-4) /hpf Blood Type O Negative Blood Type Recheck No Antibody Screen NEGATIVE 04/15/17 Range/Units 15:16 WBC (3.8-10.6) k/uL RBC (3.80-5.40) m/uL Hgb (11.4-16.0) gm/dL Hct (34.0-46.0) % MCV (80.0-100.0) fL MCH (25.0-35.0) pg MCHC (31.0-37.0) g/dL RDW (11.5-15.5) % Plt Count (150-450) k/uL Neutrophils % % Lymphocytes % % Monocytes % % Eosinophils % % Basophils % % Neutrophils # (1.3-7.7) k/uL Lymphocytes # (1.0-4.8) k/uL Monocytes # (0-1.0) k/uL Eosinophils # (0-0.7) k/uL Basophils # (0-0.2) k/uL Sodium (137-145) mmol/L Potassium (3.5-5.1) mmol/L Chloride (98-107) mmol/L Carbon Dioxide (22-30) mmol/L Anion Gap mmol/L BUN (7-17) mg/dL Creatinine (0.52-1.04) mg/dL Est GFR (MDRD) Af Amer (>60 ml/min/1.73 sqM) Est GFR (MDRD) Non-Af (>60 ml/min/1.73 sqM) Glucose (74-99) mg/dL Calcium (8.4-10.2) mg/dL HCG, Quant mIU/mL Urine Color Light Yellow Urine Appearance Clear (Clear) Urine pH 6.5 (5.0-8.0) Ur Specific [place] 1.006 (1.001-1.035) Urine Protein Negative (Negative) Urine Glucose (UA) Negative (Negative) Urine Ketones Negative (Negative) Urine Blood Trace H (Negative) Urine Nitrite Negative (Negative) Urine Bilirubin Negative (Negative) Urine Urobilinogen <2.0 (<2.0) mg/dL Ur Leukocyte Esterase Negative (Negative) Urine RBC 1 (0-5) /hpf Urine WBC 1 (0-5) /hpf Ur Squamous Epith Cells 1 (0-4) /hpf Blood Type Blood Type Recheck Antibody Screen Disposition Clinical Impression: Threatened miscarriage in early Disposition: HOME SELF-CARE Condition: Stable Instructions: Threatened Miscarriage (ED) Additional Instructions: Please return to the Emergency Department if symptoms worsen or any other concerns. Referrals: None,Stated [Primary Care Provider] - 1-2 days Time of Disposition: 17:09
[2017-04-15 15:27] LABS: Basophils # (A) 0.1 k/uL (0-0.2); Basophils % (A) 1 %; Eosinophils # (A) 0.1 k/uL (0-0.7); Eosinophils % (A) 1 %; HCT 47.3 % (34.0-46.0); HGB 16.2 gm/dL (11.4-16.0); Lymphocytes # (A) 2.5 k/uL (1.0-4.8); Lymphocytes % (A) 22 %; MCH 29.3 pg (25.0-35.0); MCHC 34.2 g/dL (31.0-37.0); MCV 85.6 fL (80.0-100.0); Mean Platelet Volume 6.3; Monocytes # (A) 0.6 k/uL (0-1.0); Monocytes % (A) 5 %; Neutrophils # (A) 8.2 k/uL (1.3-7.7); Neutrophils % (A) 70 %; Platelet Count 395 k/uL (150-450); RBC 5.53 m/uL (3.80-5.40); WBC 11.7 k/uL (3.8-10.6)
[2017-04-15 15:28] LABS: Appearance,Urine Clear (Clear); Bilirubin,Urine Negative (Negative); Blood,Urine Trace (Negative); Color,Urine Light Yellow; Glucose,Urine (UA) Negative (Negative); Ketones,Urine Negative (Negative); Leukocyte Esterase,Urine Negative (Negative); Nitrite,Urine Negative (Negative); PH, Urine 6.5 (5.0-8.0); Protein,Urine Negative (Negative); RBC,Urine 1 /hpf (0-5); Specific Gravity,Urine 1.006 (1.001-1.035); Squamous Epithelial Cell,Urine 1 /hpf (0-4); Urobilinogen,Urine <2.0 mg/dL (<2.0); WBC,Urine 1 /hpf (0-5)
[2017-04-15 15:38] LABS: Anion Gap 10 mmol/L; Blood Urea Nitrogen 12 mg/dL (7-17); Carbon Dioxide 29 mmol/L (22-30); Chloride 101 mmol/L (98-107); Glucose 95 mg/dL (74-99); Sodium 140 mmol/L (137-145)
[2017-04-15 15:55] LABS: HCG,Quantitative Serum 216.6 mIU/mL
--- NOTE | 2017-04-15 17:03 | US ---
EXAMINATION TYPE: US OB <=14 wks transvag DATE OF EXAM: 04/15/2017 COMPARISON: NONE CLINICAL HISTORY: Pain in pelvis x 3 days with some spotting today. History of ectopic and . EXAM PERFORMED: Transvaginal (TV) and Transabdominal (TA) EXAM MEASUREMENTS: GESTATIONAL AGE / DATING Physician Established: Not yet established Dates by LMP: (5 weeks/1 days) EDC: 12/15/17 Dates by First Scan: No previous this is first scan Dates by Current Scan for: (5 weeks/4 days) EDC: 12/12/17 MATERNAL ANATOMY Uterus: 8.9 x 4.3 x 5.9 cm; appears anteflexed with prominent endo and cystic space within questionab le gestational sac versus other etiology; Right Ovary: 3.6 x 1.7 x 1.5 cm; appears to have complex area likely corpus luteum measuring 1.9 x 1. 6 x 1.6 cm Left Ovary: 2.6 x 1.6 x 2.0 cm; appears wnl Post CDS / Adnexa: wnl Presence of free fluid: No Presence of corpus luteal cyst: likely on rt ovary measuring 1.9 x 1.6 x 1.6 cm Presence of subchorionic bleed: No GESTATION / SURVEY CRL: Not seen at this time MSD: 1.4 cm (5 weeks/4 days) Yolk Sac (normal less than 6mm): Not seen at this time IUP: No IUP seen at this time Date of LMP: 03/10/17 Beta HcG (if available): 216.6 IMPRESSION: Findings likely represent a normal developing . Ectopic is not fully excluded. Rec ommend follow-up with serial beta hCG and sonography as warranted.
[2017-04-15 17:18] VITALS: BP 130/71; PULSE 91; RESP 16; TEMP 99.1
== END 2017-04-15 17:37 | disposition home or self-care (01) ==
LOC: EC 14:19
DX: O20.0 Threatened abortion (principal); Z3A.01 Less than 8 weeks gestation of pregnancy
CPT/HCPCS: 99284; 96372; 36415; 86900; 86901; 80048; 85025; 86850; 81001; 84702; 76801; 76817; J2791

== ENCOUNTER 2017-04-19 12:25 | Emergency (ER) | payer OTHER ==
[2017-04-19 12:42] VITALS: RESP 18; TEMP 98.7
--- NOTE | 2017-04-19 13:03 | ED ---
General Adult HPI - General Chief complaint: Abdominal Pain Stated complaint: Pelvic Pain/ 4-5 weeks Time Seen by Provider: 04/19/17 12:44 Source: patient, RN notes reviewed Mode of arrival: ambulatory Limitations: no limitations - History of Present Illness Initial comments: 26-year-old female presents to the emergency department with a chief complaint of pelvic pain and . She was seen here on the weekend. She states that she is having worsening pain and they told her to come back if this happens. She is a . Patient states that she still having some light spotting. She was [id number] man she was here a few days ago. She states that she does not follow-up with her doctor yet. She was concerned due to the worsening pain so she thought that she should be evaluated. Patient denies any other symptoms at this time.Patient denies any recent fever, chills, shortness of breath, chest pain, back pain, nausea vomiting, numbness or tingling, dysuria or hematuria, constipation or diarrhea, headaches or visual changes, or any other current symptoms. - Related Data Home Medications Medication Instructions Recorded Confirmed Acetaminophen Tab [Tylenol Tab] 1,000 mg PO Q6HR PRN 04/19/17 04/19/17 Allergies Allergy/AdvReac Type Severity Reaction Status Date / Time No Known Allergies Allergy Verified 04/19/17 12:58 Review of Systems ROS Statement: Those systems with pertinent positive or pertinent negative responses have been documented in the HPI. ROS Other: All systems not noted in ROS Statement are negative. Past Medical History Past Medical History: No Reported History History of Any Multi-Drug Resistant Organisms: None Reported Past Surgical History: Section, Cholecystectomy Past Anesthesia/Blood Transfusion Reactions: No Reported Reaction Past Psychological History: No Psychological Hx Reported Smoking Status: Never smoker Past Alcohol Use History: None Reported Past Drug Use History: None Reported - Past Family History Mother Family Medical History: No Reported History General Exam - General Exam Comments Initial Comments: General: The patient is awake and alert, in no distress, and does not appear acutely ill. Eye: Pupils are equal, round and reactive to light. Ears, nose, mouth and throat: There are moist mucous membranes. Neck: The neck is supple, there is no tenderness. Cardiovascular: There is a regular rate and rhythm. No murmur, rub or gallop is appreciated. Respiratory: Lungs are clear to auscultation, respirations are non-labored, breath sounds are equal. No wheezes, stridor, rales, or rhonchi. Gastrointestinal: Soft, non-distended, minimal suprapubic tenderness of the abdomen without masses or organomegaly noted. There is no rebound or guarding present. No CVA tenderness. Bowel sounds are unremarkable. Back: There is no tenderness to palpation in the midline. There is no obvious deformity. No rashes noted. Musculoskeletal: Normal ROM, no tenderness, There is no pedal edema. There is no calf tenderness or swelling. Sensation intact. Pulses equal bilaterally 2+. Neurological: CN II-XII intact, There are no obvious motor or sensory deficits. Coordination appears grossly intact. Speech is normal. Skin: Skin is warm and dry and no rashes or lesions are noted. Psychiatric: Cooperative, appropriate mood & affect, normal judgment. Limitations: no limitations Course Vital Signs 04/19/17 12:38 Temperature 98.7 F Pulse Rate 91 Respiratory 18 Rate Blood Pressure 132/86 O2 Sat by Pulse 98 Oximetry Medical Decision Making - Medical Decision Making 26-year-old female presents to the emergency department with a chief complaint of abdominal pain in . At this time patient's ultrasound lab work has been reviewed. This time patient did receive RhoGAM on her previous visit. This and we discussed she still needs observation for this developing . We discussed possible etiologies. We did discuss that she needs to follow-up with repeat hCG and given prescription for that in 2 days. We did discuss all of her questions. She stated that she understood and she is in agreement this plan. All questions have been answered. She will be discharged. - Lab Data Result diagrams: 04/19/17 13:14 04/19/17 13:14 Lab Results 04/19/17 04/19/17 04/19/17 Range/Units 13:14 13:14 13:14 WBC 12.4 H (3.8-10.6) k/uL RBC 5.24 (3.80-5.40) m/uL Hgb 15.5 (11.4-16.0) gm/dL Hct 45.4 (34.0-46.0) % MCV 86.6 (80.0-100.0) fL MCH 29.5 (25.0-35.0) pg MCHC 34.1 (31.0-37.0) g/dL RDW 12.3 (11.5-15.5) % Plt Count 380 (150-450) k/uL Neutrophils % 74 % Lymphocytes % 19 % Monocytes % 5 % Eosinophils % 1 % Basophils % 0 % Neutrophils # 9.2 H (1.3-7.7) k/uL Lymphocytes # 2.3 (1.0-4.8) k/uL Monocytes # 0.6 (0-1.0) k/uL Eosinophils # 0.1 (0-0.7) k/uL Basophils # 0.0 (0-0.2) k/uL Sodium 141 (137-145) mmol/L Potassium 4.1 (3.5-5.1) mmol/L Chloride 103 (98-107) mmol/L Carbon Dioxide 28 (22-30) mmol/L Anion Gap 10 mmol/L BUN 13 (7-17) mg/dL Creatinine 1.00 (0.52-1.04) mg/dL Est GFR (MDRD) Af Amer >60 (>60 ml/min/1.73 sqM) Est GFR (MDRD) Non-Af >60 (>60 ml/min/1.73 sqM) Glucose 92 (74-99) mg/dL Calcium 9.4 (8.4-10.2) mg/dL Total Bilirubin 0.2 (0.2-1.3) mg/dL AST 24 (14-36) U/L ALT 43 (9-52) U/L Alkaline Phosphatase 123 (38-126) U/L Total Protein 7.3 (6.3-8.2) g/dL Albumin 3.8 (3.5-5.0) g/dL HCG, Quant 1032.2 mIU/mL Urine Color Urine Appearance (Clear) Urine pH (5.0-8.0) Ur Specific [place] (1.001-1.035) Urine Protein (Negative) Urine Glucose (UA) (Negative) Urine Ketones (Negative) Urine Blood (Negative) Urine Nitrite (Negative) Urine Bilirubin (Negative) Urine Urobilinogen (<2.0) mg/dL Ur Leukocyte Esterase (Negative) Urine RBC (0-5) /hpf Urine WBC (0-5) /hpf Ur Squamous Epith Cells (0-4) /hpf Urine Bacteria (None) /hpf Urine Mucus (None) /hpf Blood Type O Negative Blood Type Recheck No 04/19/17 Range/Units 13:14 WBC (3.8-10.6) k/uL RBC (3.80-5.40) m/uL Hgb (11.4-16.0) gm/dL Hct (34.0-46.0) % MCV (80.0-100.0) fL MCH (25.0-35.0) pg MCHC (31.0-37.0) g/dL RDW (11.5-15.5) % Plt Count (150-450) k/uL Neutrophils % % Lymphocytes % % Monocytes % % Eosinophils % % Basophils % % Neutrophils # (1.3-7.7) k/uL Lymphocytes # (1.0-4.8) k/uL Monocytes # (0-1.0) k/uL Eosinophils # (0-0.7) k/uL Basophils # (0-0.2) k/uL Sodium (137-145) mmol/L Potassium (3.5-5.1) mmol/L Chloride (98-107) mmol/L Carbon Dioxide (22-30) mmol/L Anion Gap mmol/L BUN (7-17) mg/dL Creatinine (0.52-1.04) mg/dL Est GFR (MDRD) Af Amer (>60 ml/min/1.73 sqM) Est GFR (MDRD) Non-Af (>60 ml/min/1.73 sqM) Glucose (74-99) mg/dL Calcium (8.4-10.2) mg/dL Total Bilirubin (0.2-1.3) mg/dL AST (14-36) U/L ALT (9-52) U/L Alkaline Phosphatase (38-126) U/L Total Protein (6.3-8.2) g/dL Albumin (3.5-5.0) g/dL HCG, Quant mIU/mL Urine Color Yellow Urine Appearance Cloudy H (Clear) Urine pH 7.0 (5.0-8.0) Ur Specific [place] 1.014 (1.001-1.035) Urine Protein Negative (Negative) Urine Glucose (UA) Negative (Negative) Urine Ketones Negative (Negative) Urine Blood Trace H (Negative) Urine Nitrite Negative (Negative) Urine Bilirubin Negative (Negative) Urine Urobilinogen <2.0 (<2.0) mg/dL Ur Leukocyte Esterase Small H (Negative) Urine RBC 3 (0-5) /hpf Urine WBC 2 (0-5) /hpf Ur Squamous Epith Cells 9 H (0-4) /hpf Urine Bacteria Rare H (None) /hpf Urine Mucus Rare H (None) /hpf Blood Type Blood Type Recheck - Radiology Data Radiology results: report reviewed, image reviewed Disposition Clinical Impression: Threatened miscarriage in early Disposition: HOME SELF-CARE Condition: Stable Instructions: Threatened Miscarriage (ED) Additional Instructions: Please use medication as discussed. Please follow up with family doctor if symptoms have not improved over the next two days. Please return to the emergency room if your symptoms increase or worsen or for any other concerns. Referrals: Wilian Hamm MD [STAFF PHYSICIAN] - 1-2 days Time of Disposition: 15:17
[2017-04-19 13:31] LABS: Basophils % (A) 0 %; Eosinophils # (A) 0.1 k/uL (0-0.7); Eosinophils % (A) 1 %; HCT 45.4 % (34.0-46.0); HGB 15.5 gm/dL (11.4-16.0); Lymphocytes # (A) 2.3 k/uL (1.0-4.8); Lymphocytes % (A) 19 %; MCH 29.5 pg (25.0-35.0); MCHC 34.1 g/dL (31.0-37.0); MCV 86.6 fL (80.0-100.0); Mean Platelet Volume 6.3; Monocytes # (A) 0.6 k/uL (0-1.0); Monocytes % (A) 5 %; Neutrophils # (A) 9.2 k/uL (1.3-7.7); Neutrophils % (A) 74 %; Platelet Count 380 k/uL (150-450); RBC 5.24 m/uL (3.80-5.40); RDW 12.3 % (11.5-15.5); WBC 12.4 k/uL (3.8-10.6)
[2017-04-19 13:41] LABS: Appearance,Urine Cloudy (Clear); Bacteria,Urine Rare /hpf; Bilirubin,Urine Negative (Negative); Blood,Urine Trace (Negative); Color,Urine Yellow; Glucose,Urine (UA) Negative (Negative); Ketones,Urine Negative (Negative); Leukocyte Esterase,Urine Small (Negative); Mucus,Urine Rare /hpf; Nitrite,Urine Negative (Negative); Protein,Urine Negative (Negative); RBC,Urine 3 /hpf (0-5); Specific Gravity,Urine 1.014 (1.001-1.035); Squamous Epithelial Cell,Urine 9 /hpf (0-4); Urobilinogen,Urine <2.0 mg/dL (<2.0); WBC,Urine 2 /hpf (0-5)
[2017-04-19 13:45] LABS: ALT 43 U/L (9-52); AST 24 U/L (14-36); Albumin 3.8 g/dL (3.5-5.0); Alkaline Phosphatase 123 U/L (38-126); Anion Gap 10 mmol/L; Blood Urea Nitrogen 13 mg/dL (7-17); Calcium 9.4 mg/dL (8.4-10.2); Carbon Dioxide 28 mmol/L (22-30); Chloride 103 mmol/L (98-107); Glucose 92 mg/dL (74-99); Potassium 4.1 mmol/L (3.5-5.1); Sodium 141 mmol/L (137-145); Total Bilirubin 0.2 mg/dL (0.2-1.3); Total Protein 7.3 g/dL (6.3-8.2)
[2017-04-19 14:01] LABS: HCG,Quantitative Serum 1032.2 mIU/mL
--- NOTE | 2017-04-19 15:04 | US ---
EXAMINATION TYPE: US OB <= 14 wk fetus DATE OF EXAM: 04/19/2017 COMPARISON: 04/15/2012 CLINICAL HISTORY: 26-year-old female Pain. Left side pain, spotting EXAM PERFORMED: Transvaginal (TV) and Transabdominal (TA) FINDINGS: EXAM MEASUREMENTS: GESTATIONAL AGE / DATING Dates by LMP: (5 weeks/5 days) EDC: 12/15/2017 Dates by First Scan: No IUP seen Dates by Current Scan for: No IUP seen at this time MATERNAL ANATOMY Uterus: 8.1 x 5.7 x 4.6 cm Right Ovary: 3.5 x 2.4 x 2.4 cm Left Ovary: 3.0 x 1.8 x 1.5 cm Post CDS / Adnexa: no free fluid Presence of free fluid: Trace amount of free fluid seen in left adnexa. Presence of corpus luteal cyst: right ovarian hypoechoic lesion with peripheral flow = 1.5 x 1.6 x 1. 2 cm Presence of subchorionic bleed: no Tiny 4 mm cystic lesion in the left adnexa interposed between the ovary and uterus. GESTATION / SURVEY CRL: No CRL seen MSD: No gestational sac seen IUP: No IUP seen at this time Date of LMP: 03/10/2017, Beta HcG (if available): 1032.2 PERFORATOR OPERATOR NOTES: No gestational sac, YS or CRL seen. Mild to moderate fluid filling the endometrial cavity width debris. Endometrium =1.0 cm. Simple cystic appearing lesion seen in left adnexa betwee n uterus and left ovary = 0.3 x 0.4 x 0.3 cm. IMPRESSION: 1. No intrauterine visualized at this time. We note that beta hCG of 1032 is below the thre shold for visualization of an intrauterine . Correlate for appropriate rise of beta-hCG. 2. There is [id number] fluid distending the uterine cavity with debris. This is unusual for a n ormal early intrauterine . Early , failed , and nonvisualized ectopic preg eliana all remain in the differential at this time. 3. Tiny 4 mm cystic lesion in the left adnexa. Attention on follow-up especially since ectopic pregna ncy remains in the differential.
[2017-04-19 15:29] VITALS: BP 120/59; PULSE 89
== END 2017-04-19 15:30 | disposition home or self-care (01) ==
LOC: EC 12:25
DX: O20.0 Threatened abortion (principal); Z3A.01 Less than 8 weeks gestation of pregnancy
CPT/HCPCS: 36415; 76801; 76817; 80053; 81001; 84702; 85025; 86900; 86901; 87086; 99284

== ENCOUNTER → 2017-04-21 | Outpatient (CLI) | payer OTHER | END | disposition home or self-care (01) | LOC: LABWHC1 14:12 | PROVIDERS: ATTEND Physician Assistant | DX: O20.0 Threatened abortion (principal); Z3A.00 Weeks of gestation of pregnancy not specified | CPT/HCPCS: 36415; 84702 ==

== ENCOUNTER → 2017-04-26 | Outpatient (CLI) | payer OTHER | END | disposition home or self-care (01) | LOC: LABWHC1 09:23 | PROVIDERS: ATTEND Obstetrics & Gynecology Obstetrics | DX: O02.1 Missed abortion (principal) | CPT/HCPCS: 36415; 84702 ==

== ENCOUNTER → 2017-04-27 | Outpatient (CLI) | payer OTHER | END | disposition home or self-care (01) | LOC: LABWHC1 10:05 | PROVIDERS: ATTEND Obstetrics & Gynecology Obstetrics | DX: O20.0 Threatened abortion (principal) | CPT/HCPCS: 36415; 84702 ==

== ENCOUNTER 2017-04-28 01:12 | Inpatient (IN) | payer BC, OTHER ==
[2017-04-28] MEDS ORDERED: MORPHINE SULFATE 4 MG/ML SYRINGE IVP STA (01:51)
[2017-04-28] MEDS ORDERED: METOCLOPRAMIDE 5 MG/ML 2 ML VIAL IVP STA (01:51)
[2017-04-28] MEDS ORDERED: diphenhydrAMINE 50 MG/ML 1 ML VIAL IVP STA (01:52)
[2017-04-28] MEDS ORDERED: SODIUM CHLORIDE 0.9% 500 ML IV ONE (01:52)
[2017-04-28] MEDS ORDERED: HYDROmorphone 2 MG/ML 1 ML SYRINGE IVP STA (02:01)
[2017-04-28] MEDS ORDERED: HYDROmorphone 0.5 MG/0.5 ML SYRINGE IVP PRN (02:08)
--- NOTE | 2017-04-28 02:26 | ED ---
Female Urogenital HPI - General Source: patient Mode of arrival: ambulatory Limitations: no limitations <Neda Erazo - Last Filed: 04/28/17 17:07> <Krunal Mcgill - Last Filed: 04/29/17 00:57> - General Chief complaint: Vaginal Bleeding Stated complaint: 5wks preg-Abd Pain Time Seen by Provider: 04/28/17 01:27 - History of Present Illness Initial comments: 26-year-old female patient presented to the emergency department today for complaints of vaginal bleeding, significant lower abdominal pain and lower back pain. Patient states she is approximately 5 weeks , currently being managed by Psychiatric [employer] [employer]. She is A2. She states that she has been having intermittent abdominal pain throughout the . She states that 3 days ago she started to have vaginal bleeding, states 2 days ago she started having passage of large clots. She states that tonight the pain has increased immensely. She is reporting pain in her lower abdomen and what feels like her rectum. States that she is unable to sit down or walk due to the pain. She states the pain makes her nauseated. She denies any fevers or chills. She denies any vomiting. Denies any constipation or diarrhea. Denies any hematuria , dysuria, urinary urgency, urinary urgency. She states that she has had 2 ultrasounds during this however they're unable to visualize anything within the uterus at that time. States that she has been following with her OB/ RESOURCE DIRECTOR in getting repeat lab work to evaluate her hCG level, she states that it has been rising and with each test. Patient denies any recent rash, fever, chills, shortness breath, chest pain, diarrhea, constipation, numbness, tingling , dizziness, weakness, headache, visual changes, or any other complaints. (Neda Erazo) - Related Data Home Medications Medication Instructions Recorded Confirmed Acetaminophen Tab [Tylenol Tab] 1,000 mg PO Q6HR PRN 04/19/17 04/28/17 Allergies Allergy/AdvReac Type Severity Reaction Status Date / Time No Known Allergies Allergy Verified 04/28/17 13:03 Review of Systems ROS Other: All systems not noted in ROS Statement are negative. <Neda Erazo - Last Filed: 04/28/17 17:07> ROS Other: All systems not noted in ROS Statement are negative. <RhondaKrunal guerrero - Last Filed: 04/29/17 00:57> ROS Statement: Those systems with pertinent positive or pertinent negative responses have been documented in the HPI. Past Medical History Past Medical History: No Reported History History of Any Multi-Drug Resistant Organisms: None Reported Past Surgical History: Section, Cholecystectomy Past Anesthesia/Blood Transfusion Reactions: No Reported Reaction Past Psychological History: No Psychological Hx Reported Smoking Status: Never smoker Past Alcohol Use History: None Reported Past Drug Use History: None Reported - Past Family History Mother Family Medical History: No Reported History <Neda Erazo - Last Filed: 04/28/17 17:07> General Exam Limitations: no limitations General appearance: alert, in distress, other (This is a 26-year-old female patient in moderate distress related to pain. Vital signs upon presentation are temperature 99.0F, pulse 98, respirations 18, blood pressure 121/78, pulse ox 100% on room air.) Eye exam: Present: normal appearance, PERRL, EOMI. Absent: scleral icterus, conjunctival injection, periorbital swelling ENT exam: Present: normal exam, normal oropharynx, mucous membranes moist Respiratory exam: Present: normal lung sounds bilaterally. Absent: respiratory distress, wheezes, rales, rhonchi, stridor Cardiovascular Exam: Present: regular rate, normal rhythm, normal heart sounds. Absent: systolic murmur, diastolic murmur, rubs, gallop, clicks GI/Abdominal exam: Present: soft, tenderness (Generalized abdominal tenderness, worse over the right lower quadrant, suprapubic area, and left lower quadrant), normal bowel sounds. Absent: distended, guarding, rebound, rigid External exam: Present: normal external exam Speculum exam: Present: vaginal bleeding (Dark red vaginal bleeding, moderate amount.), other (Patient unable to tolerate full speculum exam due to pain with insertion of the speculum, was unable to visualize the cervix). Absent: normal speculum exam By manual exam: Present: other (Unable to tolerate bimanual) Neurological exam: Present: alert, oriented X3, CN II-XII intact Psychiatric exam: Present: normal affect, normal mood, anxious, other (Crying) Skin exam: Present: warm, dry, intact, normal color. Absent: rash <Neda Erazo - Last Filed: 04/28/17 17:07> Vital Signs 04/28/17 04/28/17 04/28/17 01:15 03:28 06:00 Temperature 99 F 100.2 F H 98.7 F Pulse Rate 98 Pulse Rate [ 56 L Pulse Oximetery ] Respiratory 18 18 Rate Blood Pressure 121/78 Blood Pressure 100/45 [Left Arm Supine] O2 Sat by Pulse 100 100 Oximetry Medical Decision Making - Lab Data Result diagrams: 04/28/17 02:16 04/28/17 02:16 - Radiology Data Radiology results: report reviewed, image reviewed <Neda Erazo - Last Filed: 04/28/17 17:07> - Lab Data Result diagrams: 04/28/17 02:16 04/28/17 02:16 <Krunal Mcgill - Last Filed: 04/29/17 00:57> - Medical Decision Making 26-year-old female patient presented to the emergency department today for complaints of vaginal bleeding with passage of large clots, abdominal pain, lower back pain. Physical examination did reveal generalized abdominal tenderness worse over the lower abdomen. Labs reviewed and did show white blood cell count of 22.9, glucose of 118, hCG is 3364.3 which is decreased from yesterday's level of 4500. Urinalysis shows a cloudy appearance with 1+ protein , trace blood, and rare mucous. Patient's blood type is O-, she reports she did receive a rhogham shot about a week ago. We did perform ultrasound of the pelvis which showed that the uterus is empty, there is no free fluid or adnexal mass. Given patient's decreased hCG an elevated white blood cell count and her significant pain we did proceed with CT of the abdomen and pelvis which did show hemoperitoneum. My attending Dr. Mcgill will be taking over the case at this point contacting the on-call body shop technician for further evaluation. He will manage care until discharge. (Neda Erazo) Female the ER for evaluation, patient presented for evaluation regarding bleeding, positive , likely ectopic. Patient will be admitted for OB consultation (Krunal Mcgill) - Lab Data Lab Results 04/28/17 04/28/17 04/28/17 Range/Units 02:16 02:16 02:16 WBC 22.9 H (3.8-10.6) k/uL RBC 4.70 (3.80-5.40) m/uL Hgb 13.5 (11.4-16.0) gm/dL Hct 42.3 (34.0-46.0) % MCV 90.1 (80.0-100.0) fL MCH 28.8 (25.0-35.0) pg MCHC 32.0 (31.0-37.0) g/dL RDW 12.7 (11.5-15.5) % Plt Count 410 (150-450) k/uL Neutrophils % 86 % Lymphocytes % 10 % Monocytes % 3 % Eosinophils % 0 % Basophils % 0 % Neutrophils # 19.8 H (1.3-7.7) k/uL Lymphocytes # 2.2 (1.0-4.8) k/uL Monocytes # 0.7 (0-1.0) k/uL Eosinophils # 0.1 (0-0.7) k/uL Basophils # 0.0 (0-0.2) k/uL Sodium 138 (137-145) mmol/L Potassium 3.7 (3.5-5.1) mmol/L Chloride 104 (98-107) mmol/L Carbon Dioxide 25 (22-30) mmol/L Anion Gap 9 mmol/L BUN 12 (7-17) mg/dL Creatinine 0.70 (0.52-1.04) mg/dL Est GFR (MDRD) Af Amer >60 (>60 ml/min/1.73 sqM) Est GFR (MDRD) Non-Af >60 (>60 ml/min/1.73 sqM) Glucose 118 H (74-99) mg/dL Calcium 8.7 (8.4-10.2) mg/dL Total Bilirubin 0.3 (0.2-1.3) mg/dL AST 17 (14-36) U/L ALT 25 (9-52) U/L Alkaline Phosphatase 100 (38-126) U/L Total Protein 6.2 L (6.3-8.2) g/dL Albumin 3.1 L (3.5-5.0) g/dL HCG, Quant 3364.3 mIU/mL Urine Color Urine Appearance (Clear) Urine pH (5.0-8.0) Ur Specific [place] (1.001-1.035) Urine Protein (Negative) Urine Glucose (UA) (Negative) Urine Ketones (Negative) Urine Blood (Negative) Urine Nitrite (Negative) Urine Bilirubin (Negative) Urine Urobilinogen (<2.0) mg/dL Ur Leukocyte Esterase (Negative) Urine RBC (0-5) /hpf Urine WBC (0-5) /hpf Ur Squamous Epith Cells (0-4) /hpf Urine Mucus (None) /hpf Blood Type O Negative Blood Type Recheck No 04/28/17 Range/Units 03:05 WBC (3.8-10.6) k/uL RBC (3.80-5.40) m/uL Hgb (11.4-16.0) gm/dL Hct (34.0-46.0) % MCV (80.0-100.0) fL MCH (25.0-35.0) pg MCHC (31.0-37.0) g/dL RDW (11.5-15.5) % Plt Count (150-450) k/uL Neutrophils % % Lymphocytes % % Monocytes % % Eosinophils % % Basophils % % Neutrophils # (1.3-7.7) k/uL Lymphocytes # (1.0-4.8) k/uL Monocytes # (0-1.0) k/uL Eosinophils # (0-0.7) k/uL Basophils # (0-0.2) k/uL Sodium (137-145) mmol/L Potassium (3.5-5.1) mmol/L Chloride (98-107) mmol/L Carbon Dioxide (22-30) mmol/L Anion Gap mmol/L BUN (7-17) mg/dL Creatinine (0.52-1.04) mg/dL Est GFR (MDRD) Af Amer (>60 ml/min/1.73 sqM) Est GFR (MDRD) Non-Af (>60 ml/min/1.73 sqM) Glucose (74-99) mg/dL Calcium (8.4-10.2) mg/dL Total Bilirubin (0.2-1.3) mg/dL AST (14-36) U/L ALT (9-52) U/L Alkaline Phosphatase (38-126) U/L Total Protein (6.3-8.2) g/dL Albumin (3.5-5.0) g/dL HCG, Quant mIU/mL Urine Color Yellow Urine Appearance Cloudy H (Clear) Urine pH 6.0 (5.0-8.0) Ur Specific [place] 1.030 (1.001-1.035) Urine Protein 1+ H (Negative) Urine Glucose (UA) Negative (Negative) Urine Ketones Negative (Negative) Urine Blood Trace H (Negative) Urine Nitrite Negative (Negative) Urine Bilirubin Negative (Negative) Urine Urobilinogen 2.0 (<2.0) mg/dL Ur Leukocyte Esterase Negative (Negative) Urine RBC 3 (0-5) /hpf Urine WBC 1 (0-5) /hpf Ur Squamous Epith Cells 3 (0-4) /hpf Urine Mucus Rare H (None) /hpf Blood Type Blood Type Recheck - Radiology Data CT of the abdomen and pelvis with contrast was obtained, report was reviewed in its entirety. Impression by Dr. Rashid shows hyperdense abdominal pelvic ascites likely representing hemoperitoneum. There is blood sugar of contrast extravasation from the left uterus to a surgical clips. This may represent bleeding from the site and clinical correlation with prior surgeries recommended. These findings may also be secondary to a ruptured hemorrhagic cyst given the patient's demographic. Recommend pelvic ultrasound for further characterization. Pelvic ultrasound was obtained, report reviewed in its entirety. Impression by Dr. White shows uterus empty. No adnexal mass or free fluid. Normal endometrium. (Neda Erazo) Disposition <Neda Erazo - Last Filed: 04/28/17 17:07> <Krunal Mcgill - Last Filed: 04/29/17 00:57> Clinical Impression: Ectopic Disposition: ADMITTED IP TO THIS HOSP Condition: Fair
[2017-04-28 02:27] LABS: Basophils % (A) 0 %; Eosinophils # (A) 0.1 k/uL (0-0.7); Eosinophils % (A) 0 %; HCT 42.3 % (34.0-46.0); HGB 13.5 gm/dL (11.4-16.0); Lymphocytes # (A) 2.2 k/uL (1.0-4.8); Lymphocytes % (A) 10 %; MCH 28.8 pg (25.0-35.0); MCV 90.1 fL (80.0-100.0); Mean Platelet Volume 6.4; Monocytes # (A) 0.7 k/uL (0-1.0); Monocytes % (A) 3 %; Neutrophils # (A) 19.8 k/uL (1.3-7.7); Neutrophils % (A) 86 %; Platelet Count 410 k/uL (150-450); RDW 12.7 % (11.5-15.5); WBC 22.9 k/uL (3.8-10.6)
[2017-04-28 02:39] LABS: ALT 25 U/L (9-52); AST 17 U/L (14-36); Albumin 3.1 g/dL (3.5-5.0); Alkaline Phosphatase 100 U/L (38-126); Anion Gap 9 mmol/L; Blood Urea Nitrogen 12 mg/dL (7-17); Calcium 8.7 mg/dL (8.4-10.2); Carbon Dioxide 25 mmol/L (22-30); Chloride 104 mmol/L (98-107); Glucose 118 mg/dL (74-99); Potassium 3.7 mmol/L (3.5-5.1); Sodium 138 mmol/L (137-145); Total Bilirubin 0.3 mg/dL (0.2-1.3); Total Protein 6.2 g/dL (6.3-8.2)
--- NOTE | 2017-04-28 02:47 | US ---
EXAMINATION TYPE: US OB <= 14 wk fetus DATE OF EXAM: 04/28/2017 COMPARISON: NONE CLINICAL HISTORY: Pain. Pain and bleeding EXAM PERFORMED: Transabdominal (TA) EXAM MEASUREMENTS: GESTATIONAL AGE / DATING Physician Established: Not yet established Dates by LMP: ( 7 weeks/0 days) EDC: 12/15/2017 Dates by First Scan: No previous this is first scan Dates by Current Scan for: No IUP seen at this time ) MATERNAL ANATOMY Uterus: 7.0 x 3.1 x 4.2 cm Right Ovary: 2.7 x 2.5 x 2.2 cm Left Ovary: 3.7 x 1.9 x 2.1 cm Post CDS / Adnexa: wnl Presence of free fluid: no Presence of corpus luteal cyst: no GESTATION / SURVEY Date of LMP: 03/10/2017 Beta HcG (if available): Not available at this time No IUP seen at this time. IMPRESSION: The uterus is empty. No adnexal mass or free fluid. Normal endometrium.
[2017-04-28 02:56] LABS: HCG,Quantitative Serum 3364.3 mIU/mL
[2017-04-28 03:24] LABS: Appearance,Urine Cloudy (Clear); Bilirubin,Urine Negative (Negative); Blood,Urine Trace (Negative); Color,Urine Yellow; Glucose,Urine (UA) Negative (Negative); Ketones,Urine Negative (Negative); Leukocyte Esterase,Urine Negative (Negative); Mucus,Urine Rare /hpf; Nitrite,Urine Negative (Negative); Protein,Urine 1+ (Negative); RBC,Urine 3 /hpf (0-5); Squamous Epithelial Cell,Urine 3 /hpf (0-4); WBC,Urine 1 /hpf (0-5)
[2017-04-28] MEDS ORDERED: RX INFO: IV CONTRAST WAS GIVEN 1 EACH MISC MISCELLANE PRN (03:28)
--- NOTE | 2017-04-28 04:13 | CT ---
EXAM: CT Abdomen and Pelvis With Intravenous Contrast CLINICAL HISTORY: ITS.REASON CT Reason: Pain TECHNIQUE: Axial computed tomography images of the abdomen and pelvis with intravenous contrast. CTDI is 20 mGy and DLP is 813 mGy-cm. This CT exam was performed using one or more of the following dose reduction techniques: automated exposure control, adjustment of the mA and/or kV according to patient size, and/or use of iterative reconstruction technique. COMPARISON: No relevant prior studies available. FINDINGS: Lower thorax: No acute findings. ABDOMEN: Liver: Unremarkable. Gallbladder and bile ducts: Cholecystectomy. Pancreas: Unremarkable. Spleen: Unremarkable. Adrenals: Unremarkable. Kidneys and ureters: No hydronephrosis. Stomach and bowel: No bowel obstruction or bowel wall thickening. Appendix: Unremarkable. PELVIS: Bladder: Unremarkable. Reproductive: Obscured by fluid. Appears heterogeneous. Surgical clip in the left pelvis. ABDOMEN and PELVIS: Intraperitoneal space: Mildly hyperdense abdominal pain. Bones/joints: No acute fractures. Soft tissues: Unremarkable. Vasculature: No abdominal aortic aneurysm. There is possible extravasation of contrast around the left uterus neck to a surgical clip (series 3 image 76). Lymph nodes: No enlarged lymph nodes. IMPRESSION: 1. Hyperdense abdominopelvic ascites likely representing hemoperitoneum. 2. There is a blush of contrast extravasation from the left uterus To a surgical clip. This may represent bleeding from this site and clinical correlation with prior surgery is recommended. These findings may also be secondary to a ruptured hemorrhagic cyst given the patient's demographic. Recommend pelvic ultrasound for further characterization. [employer] 04/28/17 04:26 Verify Receipt Verified receipt with KARRI Weldon, given to Dr. Mcgill on 04/28 04:26 (-05:00)
[2017-04-28] MEDS ORDERED: SODIUM CHLORIDE 0.9% 1,000 ML IV STA ×2 (04:21)
[2017-04-28] MEDS ORDERED: SODIUM CHLORIDE 0.9% 1,000 ML IV ONE (05:15)
[2017-04-28] MEDS ORDERED: cefOXitin IN SWFI 2 GM/10 ML SYRINGE IVP ONE (09:00)
[2017-04-28] MEDS ORDERED: ACETAMINOPHEN IV (For NPO) 1,000 MG in EMPTY BAG 1 BAG IVPB PRN (09:07)
[2017-04-28] MEDS ORDERED: HYDROmorphone 0.5 MG/0.5 ML SYRINGE IM PRN (09:07)
--- NOTE | 2017-04-28 09:27 | P.HPOB ---
History of Present Illness H&P Date: 04/28/17 Chief Complaint: Abdominal pain This is a 26-year-old 6 para 3023 woman who presents to the emergency room with worsening abdominal pain and vaginal bleeding. She has been followed for an abnormal over the last 1-2 weeks. By dates she should be approximately 7 weeks 0 days however has had no evidence of IUP on ultrasound. Her hCG levels have risen abnormally and she has had significant vaginal bleeding with passage of clots over the last 72 hours. On 04/15/2017 hCG was 216, this peaked on 04/27/2017 at 4580. Currently hCG is 3364. Her hemoglobin is 13.5 with an elevated WBCs of 22.9 with a left shift. Transabdominal Pelvic ultrasound dated 04/28/2017 shows normal uterus measuring 7.0 x 3.1 x 4.2 cm with no evidence of intrauterine . There are no adnexal abnormalities or masses noted. There is no free fluid noted. CT of the abdomen and pelvis is remarkable for hemoperitoneum and possible extravasation of contrast in the area of the left uterus. There is a surgical clip noted in this area as well. The rest of the pelvic organs are obscured by hemoperitoneum. Appendix normal. She has been followed with serial pelvic ultrasounds that neither demonstrate an intrauterine nor obvious evidence of an adnexal mass or ectopic . She reports that her bleeding has actually decreased however her abdominal pain has increased over the last 18-24 hours. She is having some pain with urination. She complains of severe generalized mid and lower abdominal pain at this time. She denies nausea, vomiting, fevers, chills, upper respiratory symptoms, headaches, cough or shortness of breath. Obstetric history is significant for 2 miscarriages, 2 normal spontaneous vaginal deliveries and 1 section. Her blood type is O- and she did receive RhIg on 04/15/2017. Review of Systems Constitutional: Denies chills, Denies fever Breasts: absent: pain Cardiovascular: Denies chest pain, Denies palpitations, Denies shortness of breath, Denies syncope Respiratory: Denies congestion, Denies cough Gastrointestinal: Reports abdominal pain, Denies BRBPR, Denies change in bowel habits, Denies nausea, Denies vomiting Genitourinary: Reports as per HPI, Reports abnormal vaginal bleeding, Reports Musculoskeletal: Reports low back pain Integumentary: Denies rash Neurological: Denies confusion, Denies weakness Psychiatric: Denies anxiety, Denies depression Hematologic/Lymphatic: Denies easy bleeding, Denies easy bruising Past Medical History Past Medical History: No Reported History History of Any Multi-Drug Resistant Organisms: None Reported Past Surgical History: Section, Cholecystectomy Additional Past Surgical History / Comment(s): Gallbladder removed -2016 Past Anesthesia/Blood Transfusion Reactions: No Reported Reaction Past Psychological History: No Psychological Hx Reported Smoking Status: Never smoker Past Alcohol Use History: None Reported Past Drug Use History: None Reported - Past Family History Mother Family Medical History: No Reported History Medications and Allergies Home Medications Medication Instructions Recorded Confirmed Type Acetaminophen Tab [Tylenol Tab] 1,000 mg PO Q6HR PRN 04/19/17 04/28/17 History Allergies Allergy/AdvReac Type Severity Reaction Status Date / Time No Known Allergies Allergy Verified 04/28/17 08:03 Exam - Vital Signs Vital signs: Vital Signs Temp Pulse Pulse Resp BP BP Pulse Ox 04/28/17 08:10 98.3 F 89 20 95/61 96 04/28/17 06:48 98/54 04/28/17 06:00 98.7 F 56 L 18 100/45 100 04/28/17 03:28 100.2 F H 04/28/17 01:15 99 F 98 18 121/78 100 Intake and Output 04/27/17 04/28/17 04/28/17 22:59 06:59 14:59 Intake Total 0 Balance 0 Intake: Oral 0 Other: # Voids 1 Weight 83 kg This is a somewhat uncomfortable-appearing female in no acute distress. HEENT exam is unremarkable. Her breathing is on [place] and her heart is a regular rate and rhythm. The abdomen is mildly distended, soft but there is rebound and guarding. She has scarring consistent with her surgical history. Normal bowel sounds. Pelvic examination is deferred. Extremities are free of any obvious rashes or swelling. Neurologically she is grossly intact with no focal deficits noted. Results Result Diagrams: 04/28/17 02:16 04/28/17 02:16 Abnormal Lab Results - Last 24 Hours (Table) 04/28/17 04/28/17 04/28/17 Range/Units 02:16 02:16 03:05 WBC 22.9 H (3.8-10.6) k/uL Neutrophils # 19.8 H (1.3-7.7) k/uL Glucose 118 H (74-99) mg/dL Total Protein 6.2 L (6.3-8.2) g/dL Albumin 3.1 L (3.5-5.0) g/dL Urine Appearance Cloudy H (Clear) Urine Protein 1+ H (Negative) Urine Blood Trace H (Negative) Urine Mucus Rare H (None) /hpf Assessment and Plan (1) Abdominal pain Current Visit: Yes Status: Acute Code(s): R10.9 - UNSPECIFIED ABDOMINAL PAIN SNOMED Code(s): 98648554 (2) Hemoperitoneum Current Visit: Yes Status: Acute Code(s): K66.1 - HEMOPERITONEUM SNOMED Code(s): 366630884 (3) Ectopic Current Visit: Yes Status: Acute Code(s): O00.90 - UNSPECIFIED ECTOPIC WITHOUT INTRAUTERINE SNOMED Code(s): 06820009 Plan: This is a 26-year-old 6 para 3023 woman with probable ruptured ectopic and hemoperitoneum. Findings have been reviewed in detail with her. I recommend diagnostic laparoscopy with evacuation of hemoperitoneum and assessment of the pelvis. Treatment of findings as indicated. I also recommended D&C as she continues to have vaginal bleeding and some concern for missed . She will discuss the procedure further with her primary accounting systems manager, Dr. Garcia. The procedure, anticipated recovery time and possible risks were reviewed. Risks include but are not limited to, bleeding, transfusion, laparotomy, infection, injury to bowel, bladder, ureters and/or other pelvic structures including the uterus, fallopian tubes or ovaries. The patient understands these risks.
--- NOTE | 2017-04-28 11:11 | P.PN ---
Subjective Progress Note Date: 04/28/17 Principal diagnosis: , suspected ectopic, pelvic pain, VB Shawanda presented last pm to the ED with c/o VB, and pelvic pain, she states the pain woke her from sleep. she states her bleeidng yesterday was only a moderate flow, with minimal cramping. she is also complaining of pain with flatus. upon entering hre room today she is awake and in NAD on her phone. she states she received pain meds about 45 mins prior. Objective - Vital Signs Vital signs: Vital Signs Temp 98.3 F 04/28/17 08:10 Pulse 89 04/28/17 08:10 Resp 20 04/28/17 08:10 BP 95/61 04/28/17 08:10 Pulse Ox 96 04/28/17 08:10 Intake & Output 04/27/17 04/28/17 04/28/17 18:59 06:59 18:59 Intake Total 0 Balance 0 Weight 83 kg Intake: Oral 0 Other: # Voids 1 - Constitutional General appearance: Present: average body habitus, cooperative, no acute distress - Gastrointestinal Gastrointestinal Comment(s): non tender on plapation. no rebound or guarding at this time. General gastrointestinal: Present: soft - Psychiatric Psychiatric: Present: A&O x's 3, appropriate affect - Labs CBC & Chem 7: 04/28/17 02:16 04/28/17 02:16 Labs: Abnormal Lab Results - Last 24 Hours (Table) 04/28/17 04/28/17 04/28/17 Range/Units 02:16 02:16 03:05 WBC 22.9 H (3.8-10.6) k/uL Neutrophils # 19.8 H (1.3-7.7) k/uL Glucose 118 H (74-99) mg/dL Total Protein 6.2 L (6.3-8.2) g/dL Albumin 3.1 L (3.5-5.0) g/dL Urine Appearance Cloudy H (Clear) Urine Protein 1+ H (Negative) Urine Blood Trace H (Negative) Urine Mucus Rare H (None) /hpf Assessment and Plan (1) Abdominal pain Current Visit: Yes Status: Acute Code(s): R10.9 - UNSPECIFIED ABDOMINAL PAIN SNOMED Code(s): 33417572 (2) Ectopic Current Visit: Yes Status: Acute Code(s): O00.90 - UNSPECIFIED ECTOPIC WITHOUT INTRAUTERINE SNOMED Code(s): 90833743 (3) Hemoperitoneum Narrative/Plan: given CT scan findings will plan DL, H DC and possible other procedures if necessary once surgery is underway. she states understanding. informed consent was obtained. she is counseled on the risk of infection, bleeding, damage to bladder bowel or ureteric injury. all questions answered. Current Visit: Yes Status: Acute Code(s): K66.1 - HEMOPERITONEUM SNOMED Code(s): 117967423 (4) Leukocytosis Current Visit: No Status: Acute Code(s): D72.829 - ELEVATED WHITE BLOOD CELL COUNT, UNSPECIFIED SNOMED Code(s): 756529234 (5) Previous section Current Visit: No Status: Acute Code(s): Z98.891 - HISTORY OF UTERINE SCAR FROM PREVIOUS SURGERY SNOMED Code(s): 108582429
[2017-04-28] MEDS ORDERED: IV FLUID CONTINUATION 1,000 ML IV ONE (13:12)
[2017-04-28] MEDS ORDERED: ONDANSETRON 4 MG/2 ML VIAL IVP ONE (13:15)
[2017-04-28] MEDS ORDERED: DEXAMETHASONE SOD PHOS (MDV) 100 MG/10 ML VIAL IV ONE (13:16)
[2017-04-28] MEDS ORDERED: LACTATED RINGERS 1,000 ML IV ONE (13:25)
[2017-04-28] MEDS ORDERED: MIDAZOLAM 2 MG/2 ML VIAL ONE (13:34)
[2017-04-28] MEDS ORDERED: GLYCOPYRROLATE 0.2 MG/ML 2 ML VIAL ONE (13:34)
[2017-04-28] MEDS ORDERED: NEOSTIGMINE 1 MG/ML 10 ML VIAL ONE (13:34)
[2017-04-28] MEDS ORDERED: PROPOFOL 10 MG/ML 20 ML VIAL IV ONE (13:34)
[2017-04-28] MEDS ORDERED: fentaNYL (PF) 50 MCG/ML 2 ML AMP ONE (13:34)
[2017-04-28] MEDS ORDERED: LIDOCAINE 1% INJ 10MG/ML (20 ML MDV) ONE (13:34)
[2017-04-28] MEDS ORDERED: SUCCINYLCHOLINE CHLORIDE 100 MG/5 ML SYR IV ONE (13:34)
[2017-04-28] MEDS ORDERED: ROCURONIUM BROMIDE 10 MG/ML 10 ML VIAL IV ONE (13:34)
[2017-04-28] MEDS ORDERED: BUPIVACAINE (PF) 0.25% 30 ML VIAL SQ ONE ×2 (14:24→14:42)
[2017-04-28] MEDS ORDERED: MEPERIDINE 50 MG/ML SYRINGE IVP ONE (15:13)
--- NOTE | 2017-04-28 15:38 | P.OP ---
Date of Procedure: 04/28/17 Preoperative Diagnosis: , suspected ectopic, hemoperitoneum Postoperative Diagnosis: same Procedure(s) Performed: OL removal of hemoperitoneum, removal of portion of the left fallopian tube, dilation and curettage Anesthesia: GETA Surgeon: Gail Garcia Estimated Blood Loss (ml): 100 IV fluids (ml): 1,700 Urine output (ml): 75 Pathology: other (portion of left fallopian tube, endometrial curettings) Condition: stable Disposition: PACU Indications for Procedure: hemoperitoneum, vaginal bleeding and positive Operative Findings: hemoperitoneum, left ectopic. normal ovaries b/l, normal appearing right fallopian tube Description of Procedure: Patient was seen in the preoperative area and informed consent was obtained. Risks were reviewed with patient in detail including but not to infection, bleeding, damage to bladder, bowel, loss of fallopian tube. Patient stated understanding and informed consent was obtained. Patient was taken to the operating room her general anesthesia was obtained without difficulty by the anesthesia department. She was then prepped and draped in normal sterile fashion the dorsal lithotomy position a right upper catheter was then used to drain clear yellow urine. Weighted speculum posterior vaginal vault and the anterior lip of the cervix was visualized grasped with single-tooth tenaculum and an acorn uterine pillars advanced and the cervix as a means to manipulate the uterus struck the procedure. At this point, attention was then turned to the patient's abdomen where in the umbilical fold a 5 mm skin incision was made, through this incision the veress needle is placed. Co2 insuffulation was allowed to occur once it was deemed to be in the proper position. A drop of CO2 pressure was noted, approx., 3 L of gas were used to obtain pneumoperitoneum. At this point an additional port site is placed in the right lower quadrant this is a 5 mm port placed under direct visualization. On inspection of the patient's pelvis initially a large blood clot was noted on the fundal region of the uterus a good amount of suction irrigation was used to clear this area the right fallopian tube was visualized and normal, the left fallopian tube was then visualized elevated and noted to be bleeding at the fimbria. At this point the ovary was visualized and normal. An additional port site is then placed in the left lower quadrant, the fallopian tube was then elevated and the LigaSure device was then used to transect the fallopian tube from the mesosalpinx. This was then placed in an Endo Catch bag and removed from the abdomen. Copious irrigation were then used and the pelvis was noted to be hemostatic. The upper abdomen was then inspected and cleaned of any clots and debris. At this point the laps and instruments were removed in the trochars removed in addition. The skin incisions were then closed with 4-0 Vicryl in subcu fashion Steri-Strips and sterile dressings were applied as needed. At this point attention was then turned the patient's vaginal vault the acorn uterine manipulator was removed without difficulty and the cervix was then dilated to 18-J[place]. Sharp curettage was then gently performed specimens and sent off to pathology for analysis. The single tooth tenaculum was then taken off of the anterior lip of the cervix small amount of bleeding was noted therefore a 4-0 chromic was used to obtain hemostasis. Minimal amount of vaginal bleeding was noted at this time in addition. Next OR correct 2 patient tolerated procedure well and was taken to recovery room awake and in stable condition. of note a total of 400cc of blood was suctioned during the procedure, all old and clotted blood.
[2017-04-28] MEDS ORDERED: ACETAMINOPHEN IV (For NPO) 1,000 MG in EMPTY BAG 1 BAG IVPB ONE (15:39)
[2017-04-28] MEDS ORDERED: Acetaminophen-Codeine 300-30mg TAB PO PRN ×2 (15:39)
[2017-04-28] MEDS ORDERED: LACTATED RINGERS 1,000 ML IV SCH (15:45)
[2017-04-28] MEDS: ONDANSETRON 4 MG/2 ML VIAL IVP PRN ×2 (17:31→23:29)
--- NOTE | 2017-04-28 17:51 | P.PN ---
Subjective Progress Note Date: 04/28/17 Principal diagnosis: , suspected ectopic, pelvic pain, VB Shawanda presented last pm to the ED with c/o VB, and pelvic pain, she states the pain woke her from sleep. she states her bleeidng yesterday was only a moderate flow, with minimal cramping. she is also complaining of pain with flatus. upon entering hre room today she is awake and in NAD on her phone. she states she received pain meds about 45 mins prior. Pt is seen post operatively and is "feeling better already" she hasn't urinated since surgery but feels the urge, she denies pain currently Objective - Vital Signs Vital signs: Vital Signs Temp 98 F 04/28/17 15:04 Pulse 96 04/28/17 15:45 Resp 18 04/28/17 15:45 BP 115/58 04/28/17 15:45 Pulse Ox 95 04/28/17 15:45 Intake & Output 04/27/17 04/28/17 04/28/17 18:59 06:59 18:59 Intake Total 0 2000 Output Total 175 Balance 0 1825 Weight 83 kg Intake: IV 2000 Oral 0 Output: Urine 75 Estimated Blood Loss 100 Other: # Voids 1 1 - Constitutional General appearance: Present: cooperative, no acute distress - Gastrointestinal General gastrointestinal: Present: decreased bowel sounds, soft - Labs CBC & Chem 7: 04/28/17 02:16 04/28/17 02:16 Labs: Abnormal Lab Results - Last 24 Hours (Table) 04/28/17 04/28/17 04/28/17 Range/Units 02:16 02:16 03:05 WBC 22.9 H (3.8-10.6) k/uL Neutrophils # 19.8 H (1.3-7.7) k/uL Glucose 118 H (74-99) mg/dL Total Protein 6.2 L (6.3-8.2) g/dL Albumin 3.1 L (3.5-5.0) g/dL Urine Appearance Cloudy H (Clear) Urine Protein 1+ H (Negative) Urine Blood Trace H (Negative) Urine Mucus Rare H (None) /hpf Assessment and Plan (1) Abdominal pain Current Visit: Yes Status: Acute Code(s): R10.9 - UNSPECIFIED ABDOMINAL PAIN SNOMED Code(s): 52947142 (2) Ectopic Narrative/Plan: POD 0 s/p OL Left salpincectomy, evacuation of hemoperitoneum, DC pt is doing well, VSS will encourage ambulation tonight, await spontaneous void, continue IV antibiotics for 24 hours. Current Visit: Yes Status: Acute Code(s): O00.90 - UNSPECIFIED ECTOPIC WITHOUT INTRAUTERINE SNOMED Code(s): 39855320 (3) Hemoperitoneum Current Visit: Yes Status: Acute Code(s): K66.1 - HEMOPERITONEUM SNOMED Code(s): 401948881 (4) Leukocytosis Current Visit: No Status: Acute Code(s): D72.829 - ELEVATED WHITE BLOOD CELL COUNT, UNSPECIFIED SNOMED Code(s): 003327855 (5) Previous section Current Visit: No Status: Acute Code(s): Z98.891 - HISTORY OF UTERINE SCAR FROM PREVIOUS SURGERY SNOMED Code(s): 037708464
[2017-04-28 20:20] VITALS: RESP 20
[2017-04-28] MEDS ORDERED: ceFAZolin IN SWFI 2 GM/20 ML SYRINGE IVP SCH (21:00)
[2017-04-29 06:42] LABS: Basophils % (A) 0 %; Eosinophils # (A) 0.1 k/uL (0-0.7); Eosinophils % (A) 0 %; HCT 35.9 % (34.0-46.0); HGB 11.8 gm/dL (11.4-16.0); Lymphocytes % (A) 11 %; MCH 28.6 pg (25.0-35.0); MCHC 32.7 g/dL (31.0-37.0); MCV 87.5 fL (80.0-100.0); Mean Platelet Volume 6.6; Monocytes # (A) 0.6 k/uL (0-1.0); Monocytes % (A) 3 %; Neutrophils # (A) 15.3 k/uL (1.3-7.7); Neutrophils % (A) 84 %; Platelet Count 410 k/uL (150-450); RBC 4.11 m/uL (3.80-5.40); RDW 12.6 % (11.5-15.5); WBC 18.1 k/uL (3.8-10.6)
--- NOTE | 2017-04-29 09:18 | P.PN ---
Subjective Progress Note Date: 04/29/17 Principal diagnosis: POD 1 OL left salpingectomy, removal of hemoperitoneum, DC Pt did well overnight, one episode of emesis. she hasnt taken anything for pain this am and states she is feeling much better. she is ambulating and voiding without difficulty, tolerating clear liquids this am Objective - Vital Signs Vital signs: Vital Signs Temp 98.2 F 04/28/17 23:00 Pulse 72 04/28/17 23:00 Resp 20 04/28/17 23:00 BP 110/62 04/28/17 23:00 Pulse Ox 98 04/28/17 23:00 Intake & Output 04/28/17 04/29/17 04/29/17 18:59 06:59 18:59 Intake Total 1999 Output Total 175 Balance 1825 Intake: IV 1999 Output: Urine 75 Estimated Blood Loss 100 Other: # Voids 1 - Constitutional General appearance: Present: cooperative, no acute distress - Respiratory Respiratory: bilateral: CTA - Cardiovascular Rhythm: regular - Gastrointestinal General gastrointestinal: Present: soft - Psychiatric Psychiatric: Present: A&O x's 3, appropriate affect - Labs CBC & Chem 7: 04/29/17 06:25 04/28/17 02:16 Labs: Abnormal Lab Results - Last 24 Hours (Table) 04/29/17 Range/Units 06:25 WBC 18.1 H (3.8-10.6) k/uL Neutrophils # 15.3 H (1.3-7.7) k/uL Assessment and Plan (1) Abdominal pain Current Visit: Yes Status: Acute Code(s): R10.9 - UNSPECIFIED ABDOMINAL PAIN SNOMED Code(s): 05768991 (2) Ectopic Narrative/Plan: doing well surgically, will advance her diet now. if she tolerates a regular diet and VSS remian stable she will be able to go home today d/c instructions are reviewed with pt in detail and she is to FU with myself mon or mon of next week. Rx motrin, Tylenol #3 Current Visit: Yes Status: Acute Code(s): O00.90 - UNSPECIFIED ECTOPIC WITHOUT INTRAUTERINE SNOMED Code(s): 15596406 (3) Hemoperitoneum Current Visit: Yes Status: Acute Code(s): K66.1 - HEMOPERITONEUM SNOMED Code(s): 249621048 (4) Leukocytosis Current Visit: No Status: Acute Code(s): D72.829 - ELEVATED WHITE BLOOD CELL COUNT, UNSPECIFIED SNOMED Code(s): 781039112 (5) Previous section Current Visit: No Status: Acute Code(s): Z98.891 - HISTORY OF UTERINE SCAR FROM PREVIOUS SURGERY SNOMED Code(s): 704800445
[2017-04-29 10:04] VITALS: BP 132/79; PULSE 71; TEMP 98
== END 2017-04-29 10:08 | disposition home or self-care (01) | DRG 777 ==
LOC: EC 01:12 → 6PED 05:15 → OBSVTOIN 15:39 → 6PED 04-29 00:31 → UNDODISOB 04-29 10:08
PROVIDERS: ADMIT Obstetrics & Gynecology; ATTEND Obstetrics & Gynecology
PROC: 0UB64ZZ Excision of Left Fallopian Tube, Percutaneous Endoscopic Approach (ICD-10-PCS; principal; 2017-04-28 08:30)
PROC: 10T24ZZ Resection of Products of Conception, Ectopic, Percutaneous Endoscopic Approach (ICD-10-PCS; principal; 2017-04-28 08:30)
PROC: 0W9G4ZZ Drainage of Peritoneal Cavity, Percutaneous Endoscopic Approach (ICD-10-PCS; principal; 2017-04-28 08:30)
PROC: 0UDB8ZZ Extraction of Endometrium, Via Natural or Artificial Opening Endoscopic (ICD-10-PCS; principal; 2017-04-28 08:30)
DX: O00.102 Left tubal pregnancy without intrauterine pregnancy (principal); K66.1 Hemoperitoneum; D72.829 Elevated white blood cell count, unspecified; Z3A.01 Less than 8 weeks gestation of pregnancy; R11.10 Vomiting, unspecified; O34.211 Maternal care for low transverse scar from previous cesarean delivery
CPT/HCPCS: 36415; 74177; 76801; 80053; 81001; 84702; 85025; 86900; 86901; 87040; 88305; 96361; 96372; 96374; 96375; 99285

== ENCOUNTER → 2017-05-02 | Outpatient (CLI) | payer BC ==
[2017-05-02 12:13] LABS: HCT 34.8 % (34.0-46.0); HGB 11.8 gm/dL (11.4-16.0); MCH 29.4 pg (25.0-35.0); MCHC 33.9 g/dL (31.0-37.0); MCV 86.6 fL (80.0-100.0); Mean Platelet Volume 6.4; Platelet Count 418 k/uL (150-450); RBC 4.02 m/uL (3.80-5.40); RDW 13.1 % (11.5-15.5); WBC 10.5 k/uL (3.8-10.6)
== END | disposition home or self-care (01) ==
LOC: LABWHC1 11:42
PROVIDERS: ATTEND Obstetrics & Gynecology Obstetrics
DX: O00.109 Unspecified tubal pregnancy without intrauterine pregnancy (principal); Z3A.00 Weeks of gestation of pregnancy not specified
CPT/HCPCS: 36415; 84702; 85027

== ENCOUNTER → 2017-05-10 | Outpatient (CLI) | payer BC | END | disposition home or self-care (01) | LOC: LABWHC1 14:45 | PROVIDERS: ATTEND Obstetrics & Gynecology Obstetrics | DX: O00.109 Unspecified tubal pregnancy without intrauterine pregnancy (principal); Z3A.00 Weeks of gestation of pregnancy not specified | CPT/HCPCS: 36415; 84702 ==

== ENCOUNTER 2018-04-10 23:15 | Emergency (ER) | payer BC, OTHER ==
[2018-04-10 23:53] LABS: Appearance,Urine Clear (Clear); Bacteria,Urine Rare /hpf; Bilirubin,Urine Negative (Negative); Blood,Urine Trace (Negative); Color,Urine Yellow; Glucose,Urine (UA) Negative (Negative); Ketones,Urine Negative (Negative); Leukocyte Esterase,Urine Negative (Negative); Mucus,Urine Rare /hpf; Nitrite,Urine Negative (Negative); Protein,Urine Negative (Negative); RBC,Urine 1 /hpf (0-5); Specific Gravity,Urine 1.018 (1.001-1.035); Squamous Epithelial Cell,Urine 3 /hpf (0-4); Urobilinogen,Urine <2.0 mg/dL (<2.0)
[2018-04-11] MEDS ORDERED: SODIUM CHLORIDE 0.9% 1,000 ML IV ONE (00:39)
[2018-04-11 01:47] LABS: Basophils % (A) 0 %; Eosinophils # (A) 0.1 k/uL (0-0.7); Eosinophils % (A) 1 %; HCT 43.1 % (34.0-46.0); HGB 14.5 gm/dL (11.4-16.0); Lymphocytes # (A) 2.6 k/uL (1.0-4.8); Lymphocytes % (A) 34 %; MCHC 33.7 g/dL (31.0-37.0); MCV 86.2 fL (80.0-100.0); Mean Platelet Volume 6.7; Monocytes # (A) 0.4 k/uL (0-1.0); Monocytes % (A) 6 %; Neutrophils # (A) 4.4 k/uL (1.3-7.7); Neutrophils % (A) 57 %; Platelet Count 282 k/uL (150-450); RDW 12.9 % (11.5-15.5); WBC 7.7 k/uL (3.8-10.6)
--- NOTE | 2018-04-11 01:50 | US ---
EXAM: US First Trimester, Transabdominal CLINICAL HISTORY: ITS.REASON US Reason: Pain TECHNIQUE: Real-time transabdominal obstetrical ultrasound of the maternal pelvis and a first trimester with image documentation. COMPARISON: No relevant prior studies FINDINGS: Uterus: Measures 8.4 x 4.8 x 6.8 cm. Normal appearance. No abnormal endometrial thickening. No intrauterine identified. Right ovary: Measures 3.2 x 2.5 x 2.4 cm. Normal appearance with normal color Doppler flow. Left ovary: Measures 2.5 x 1.8 x 1.8 cm. Normal appearance with normal color Doppler flow. Other: No free fluid. No adnexal mass. IMPRESSION: No intrauterine or extrauterine identified. Please correlate with serial beta hCG measurements and/or short-term follow-up exam if clinically indicated.
[2018-04-11 01:52] LABS: ALT 38 U/L (9-52); AST 18 U/L (14-36); Albumin 3.2 g/dL (3.5-5.0); Alkaline Phosphatase 80 U/L (38-126); Anion Gap 7 mmol/L; Blood Urea Nitrogen 13 mg/dL (7-17); Carbon Dioxide 23 mmol/L (22-30); Chloride 108 mmol/L (98-107); Glucose 94 mg/dL (74-99); Potassium 4.2 mmol/L (3.5-5.1); Sodium 138 mmol/L (137-145); Total Bilirubin 0.5 mg/dL (0.2-1.3); Total Protein 6.5 g/dL (6.3-8.2)
[2018-04-11] MEDS ORDERED: ACETAMINOPHEN TAB 325 MG TAB PO STA (01:53)
[2018-04-11 02:08] LABS: HCG,Quantitative Serum 315.8 mIU/mL
[2018-04-11 02:16] VITALS: BP 118/70; PULSE 97; RESP 18; TEMP 98.6
--- NOTE | 2018-04-11 02:17 | ED ---
Abdominal Pain HPI - General Source: patient Mode of arrival: ambulatory Limitations: no limitations <Eduarda Rodarte - Last Filed: 04/11/18 04:31> <Sarah De Leon - Last Filed: 04/11/18 06:39> - General Chief Complaint: Abdominal Pain Stated Complaint: Abd Pain, 4 wks Time Seen by Provider: 04/10/18 23:50 - History of Present Illness Initial Comments: 27-year-old female with history of ectopic presents today for multiple complaints. Patient states that for the past few weeks she has experienced pain in her upper back that increases with movement. 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 Denies chest pain, dyspnea dyspnea on exertion trauma to the back. Patient states her main concern about her to the emergency department that she had right lower pelvic pain and a positive test. She states is a dull aching right lower ovarian area pain, denies any right lower quadrant abdominal pain. Patient denies radiation, vaginal discharge, vaginal bleeding, flank pain. Patient states she also has some right hip pain, but increases with ambulation. Patient denies any urinary retention, numbness tingling or loss sensation of the lower extremities. Patient denies any recent fever, chills , shortness of breath, chest pain, back pain, abdominal pain, nausea or vomiting , numbness or tingling, dysuria or hematuria, constipation or diarrhea, headaches or visual changes, or any other complaints. (Eduarda Rodarte) - Related Data Home Medications Medication Instructions Recorded Confirmed No Known Home Medications 04/10/18 04/10/18 Allergies Allergy/AdvReac Type Severity Reaction Status Date / Time No Known Allergies Allergy Verified 04/10/18 23:28 Review of Systems ROS Other: All systems not noted in ROS Statement are negative. <Eduarda Rodarte - Last Filed: 04/11/18 04:31> ROS Other: All systems not noted in ROS Statement are negative. <Sarah De Leon - Last Filed: 04/11/18 06:39> ROS Statement: Those systems with pertinent positive or pertinent negative responses have been documented in the HPI. Past Medical History Past Medical History: No Reported History History of Any Multi-Drug Resistant Organisms: None Reported Past Surgical History: Section, Cholecystectomy Additional Past Surgical History / Comment(s): Gallbladder removed -2016 Past Anesthesia/Blood Transfusion Reactions: No Reported Reaction Past Psychological History: No Psychological Hx Reported Smoking Status: Never smoker Past Alcohol Use History: None Reported Past Drug Use History: None Reported - Past Family History Mother Family Medical History: No Reported History <Eduarda Rodarte - Last Filed: 04/11/18 04:31> General Exam Limitations: no limitations <Eduarad Rodarte - Last Filed: 04/11/18 04:31> <De LeonJacobSarah P - Last Filed: 04/11/18 06:39> - General Exam Comments Initial Comments: General: The patient is awake and alert, in no distress, and does not appear acutely ill. Eye: Pupils are equal, round and reactive to light, extra-ocular movements are intact. No nystagmus. There is normal conjunctiva bilaterally. No signs of icterus. Ears, nose, mouth and throat: There are moist mucous membranes and no oral lesions. Neck: The neck is supple, there is no tenderness or JVD. Paravertebral tenderness with palpation of the thoracic spine, no midline tenderness to palpation. Patient reproduces pain with rotation or movement of the arms. Cardiovascular: There is a regular rate and rhythm. No murmur, rub or gallop is appreciated. Respiratory: Lungs are clear to auscultation, respirations are non-labored, breath sounds are equal. No wheezes, stridor, rales, or rhonchi. Gastrointestinal: No noted diaphoresis, jaundice, pallor, protecting postures or squirming. Symmetrical pigmentation of abdomen without signs of inflammation. Umbilicus mildline, inverted without swelling. No dilated veins. Abdomen contour obese, no noted abdominal distention. No visible masses. No peristalsis, aortic pulsations, or ventral hernia. Bowel sounds audible in all 4 quadrants, unremarkable. No friction rubs or venous hums. No epigastic, hepatic or abdominal bruits. Mild tenderness to palpation of the right lower pelvic region , no palpable mass/hernia. Liver edge, not palpable. Spleen edge, right and left kidney not palpable. Superior bladder margin non-tender. Special Testing: Negative [place], [place], McBurney, [place], cutaneous hyperesthesia. Negative Heel Jar test. No CVA tenderness. Digital rectal exam deferred.Negative jones turners or cullens sign Pelvic: Normal female hair pattern, no external lesions. Vaginal mucosa pink and moist well rugated. No vaginal bleeding. Small amount of discharge in the vaginal vault consistent with physiological no odor. Cervical os closed. Musculoskeletal: Normal ROM, no tenderness. Strength 5/5 of the upper and lower extremities equal and comparison bilaterally. Sensation intact of the upper and lower extremities equal and comparison bilaterally. Radial and DP pulses equal bilaterally 2+. Neurological: A&O x 3. CN II-XII intact, There are no obvious motor or sensory deficits. Coordination appears grossly intact. Speech is normal. Skin: Skin is warm and dry and no rashes or lesions are noted. Psychiatric: Cooperative, appropriate mood & affect, normal judgment. (Eduarda Rodarte) Vital Signs 04/10/18 04/11/18 23:18 02:15 Temperature 98.7 F 98.6 F Pulse Rate 83 97 Respiratory 20 18 Rate Blood Pressure 120/83 118/70 O2 Sat by Pulse 100 100 Oximetry Medical Decision Making - Lab Data Result diagrams: 04/11/18 01:15 04/11/18 01:15 <Eduarda Rodarte - Last Filed: 04/11/18 04:31> - Lab Data Result diagrams: 04/11/18 01:15 04/11/18 01:15 <Sarah De Leon - Last Filed: 04/11/18 06:39> - Medical Decision Making 27-year-old presenting for right lower pelvic pain, back pain. Patient back pain that is reproducible, appears muscle skeletalal in nature. No concerning history for infectious etiology/vascular. Patient does do repetitive motions at work, she works at a factory. Patient was given Tylenol. Patient states making complaint was right lower pelvic pain. Ultrasound revealed no intrauterine , there is no evidence of ectopic at this time. Adnexa within normal limits. No free fluid. Patient did not have adnexal tenderness on pelvic exam. There is a small amount of discharge which appeared physiological. Patient does not appear to be in severe pain, she is resting comfortably. Pain is better. Patient with light palpation over the abdomen in the right lower pelvic region., Must keep the palpate. No rigidity or guarding. There is no right lower quadrant tenderness, negative McBurney sign. No peritoneal irritation signs. Patient's laboratory studies within acceptable limits. HCG quantitative less than 500, consistent with early . Patient pain concerning with history of ectopic. Patient was urged to closely follow-up with her LOW VISION THERAPIST, and have a repeat hCG in 2 days. Patient is given prescription for this laboratory study. Patient is agreeable plan and discharged. I did discuss the case with attending provider Dr. De Leon briefly , she did agree with the impression and plan. Patient discharged in stable condition appearing well. Return parameters were discussed at length with patient who verbalizes understanding. (Eduarda Rodarte) I was available for consultation in the emergency department. The history and physical exam were done by the midlevel provider. I was consulted for this patient's care. I reviewed the case with the midlevel provider and based on their presentation of the patient, I agree with the assessment, medical decision making and plan of care as documented. (Sarah De Leon) - Lab Data Lab Results 04/10/18 04/11/18 04/11/18 Range/Units 23:34 01:15 01:15 WBC 7.7 (3.8-10.6) k/uL RBC 5.00 (3.80-5.40) m/uL Hgb 14.5 (11.4-16.0) gm/dL Hct 43.1 (34.0-46.0) % MCV 86.2 (80.0-100.0) fL MCH 29.0 (25.0-35.0) pg MCHC 33.7 (31.0-37.0) g/dL RDW 12.9 (11.5-15.5) % Plt Count 282 (150-450) k/uL Neutrophils % 57 % Lymphocytes % 34 % Monocytes % 6 % Eosinophils % 1 % Basophils % 0 % Neutrophils # 4.4 (1.3-7.7) k/uL Lymphocytes # 2.6 (1.0-4.8) k/uL Monocytes # 0.4 (0-1.0) k/uL Eosinophils # 0.1 (0-0.7) k/uL Basophils # 0.0 (0-0.2) k/uL Sodium (137-145) mmol/L Potassium (3.5-5.1) mmol/L Chloride (98-107) mmol/L Carbon Dioxide (22-30) mmol/L Anion Gap mmol/L BUN (7-17) mg/dL Creatinine (0.52-1.04) mg/dL Est GFR (CKD-EPI)AfAm (>60 ml/min/1.73 sqM) Est GFR (CKD-EPI)NonAf (>60 ml/min/1.73 sqM) Glucose (74-99) mg/dL Calcium (8.4-10.2) mg/dL Total Bilirubin (0.2-1.3) mg/dL AST (14-36) U/L ALT (9-52) U/L Alkaline Phosphatase (38-126) U/L Total Protein (6.3-8.2) g/dL Albumin (3.5-5.0) g/dL HCG, Quant mIU/mL Urine Color Yellow Urine Appearance Clear (Clear) Urine pH 6.0 (5.0-8.0) Ur Specific [place] 1.018 (1.001-1.035) Urine Protein Negative (Negative) Urine Glucose (UA) Negative (Negative) Urine Ketones Negative (Negative) Urine Blood Trace H (Negative) Urine Nitrite Negative (Negative) Urine Bilirubin Negative (Negative) Urine Urobilinogen <2.0 (<2.0) mg/dL Ur Leukocyte Esterase Negative (Negative) Urine RBC 1 (0-5) /hpf Urine WBC 1 (0-5) /hpf Urine WBC Clumps Rare H (None) /hpf Ur Squamous Epith Cells 3 (0-4) /hpf Urine Bacteria Rare H (None) /hpf Urine Mucus Rare H (None) /hpf Urine HCG, Qual Detected (Not Detectd) 04/11/18 Range/Units 01:15 WBC (3.8-10.6) k/uL RBC (3.80-5.40) m/uL Hgb (11.4-16.0) gm/dL Hct (34.0-46.0) % MCV (80.0-100.0) fL MCH (25.0-35.0) pg MCHC (31.0-37.0) g/dL RDW (11.5-15.5) % Plt Count (150-450) k/uL Neutrophils % % Lymphocytes % % Monocytes % % Eosinophils % % Basophils % % Neutrophils # (1.3-7.7) k/uL Lymphocytes # (1.0-4.8) k/uL Monocytes # (0-1.0) k/uL Eosinophils # (0-0.7) k/uL Basophils # (0-0.2) k/uL Sodium 138 (137-145) mmol/L Potassium 4.2 (3.5-5.1) mmol/L Chloride 108 H (98-107) mmol/L Carbon Dioxide 23 (22-30) mmol/L Anion Gap 7 mmol/L BUN 13 (7-17) mg/dL Creatinine 0.77 (0.52-1.04) mg/dL Est GFR (CKD-EPI)AfAm >90 (>60 ml/min/1.73 sqM) Est GFR (CKD-EPI)NonAf >90 (>60 ml/min/1.73 sqM) Glucose 94 (74-99) mg/dL Calcium 9.0 (8.4-10.2) mg/dL Total Bilirubin 0.5 (0.2-1.3) mg/dL AST 18 (14-36) U/L ALT 38 (9-52) U/L Alkaline Phosphatase 80 (38-126) U/L Total Protein 6.5 (6.3-8.2) g/dL Albumin 3.2 L (3.5-5.0) g/dL HCG, Quant 315.8 mIU/mL Urine Color Urine Appearance (Clear) Urine pH (5.0-8.0) Ur Specific [place] (1.001-1.035) Urine Protein (Negative) Urine Glucose (UA) (Negative) Urine Ketones (Negative) Urine Blood (Negative) Urine Nitrite (Negative) Urine Bilirubin (Negative) Urine Urobilinogen (<2.0) mg/dL Ur Leukocyte Esterase (Negative) Urine RBC (0-5) /hpf Urine WBC (0-5) /hpf Urine WBC Clumps (None) /hpf Ur Squamous Epith Cells (0-4) /hpf Urine Bacteria (None) /hpf Urine Mucus (None) /hpf Urine HCG, Qual (Not Detectd) Disposition Is patient prescribed a controlled substance at d/c from ED?: No Time of Disposition: 02:16 <Eduarda Rodarte L - Last Filed: 04/11/18 04:31> <Sarah De Leon P - Last Filed: 04/11/18 06:39> Clinical Impression: , Pelvic pain affecting in first trimester, antepartum, Back pain Disposition: HOME SELF-CARE Condition: Good Instructions (If sedation given, give patient instructions): (ED), Abdominal Pain in (ED) Additional Instructions: Please use medication as discussed. Please follow-up with OBGYN in next 2 days. Please follow-up with primary care for back pain. You need to repeat HCG in 2 days and have repeat US in next 1-2 weeks or as recommended by OBGYN. Please return to emergency room if the symptoms increase or worsen or for any other concerns, including vaginal bleeding, increase/persistent or worsening pain. Referrals: None,Stated [Primary Care Provider] - 1-2 days Madny Louis MD [STAFF PHYSICIAN] - 1-2 days
[2018-04-12 15:16] LABS: C. trachomatis,PCR Negative (Neg,Equiv); Chlamydia trachomatis Source Vagina
[2018-04-12 15:21] LABS: N. gonorrhoeae,PCR Negative (Neg,Equiv); Neisseria Source Vagina
== END 2018-04-11 02:45 | disposition home or self-care (01) ==
LOC: EC 23:15
DX: O26.891 Other specified pregnancy related conditions, first trimester (principal); R10.2 Pelvic and perineal pain; M54.9 Dorsalgia, unspecified; Z3A.01 Less than 8 weeks gestation of pregnancy; Z90.49 Acquired absence of other specified parts of digestive tract
CPT/HCPCS: 36415; 76801; 80053; 81001; 81025; 84702; 85025; 87070; 87205; 87491; 87591; 96360; 99284

== ENCOUNTER → 2018-04-13 | Outpatient (CLI) | payer BC | LOC: LABWHC1 14:53 | PROVIDERS: ATTEND Physician Assistant Medical | DX: R10.9 Unspecified abdominal pain (principal) | CPT/HCPCS: 36415; 84702 ==

== ENCOUNTER 2018-09-13 10:16 | Emergency (ER) | payer BC ==
[2018-09-13] MEDS ORDERED: ONDANSETRON 4 MG/2 ML VIAL IVP STA (10:36)
[2018-09-13] MEDS ORDERED: SODIUM CHLORIDE 0.9% 1,000 ML IV STA (10:36)
[2018-09-13] MEDS ORDERED: MORPHINE SULFATE 4 MG/ML SYRINGE IVP STA (10:38)
[2018-09-13 11:11] LABS: Basophils % (A) 0 %; Eosinophils % (A) 0 %; HCT 44.6 % (34.0-46.0); HGB 15.4 gm/dL (11.4-16.0); Lymphocytes # (A) 3.1 k/uL (1.0-4.8); Lymphocytes % (A) 38 %; MCH 29.7 pg (25.0-35.0); MCHC 34.5 g/dL (31.0-37.0); Mean Platelet Volume 6.9; Monocytes # (A) 0.3 k/uL (0-1.0); Monocytes % (A) 4 %; Neutrophils # (A) 4.5 k/uL (1.3-7.7); Neutrophils % (A) 55 %; Platelet Count 322 k/uL (150-450); RBC 5.19 m/uL (3.80-5.40); RDW 14.4 % (11.5-15.5); WBC 8.1 k/uL (3.8-10.6)
--- NOTE | 2018-09-13 11:20 | ED ---
Abdominal Pain HPI - General Chief Complaint: Abdominal Pain Stated Complaint: Urogenital Time Seen by Provider: 09/13/18 10:26 Source: patient Mode of arrival: wheelchair Limitations: no limitations - History of Present Illness Initial Comments: Patient is a 28-year-old female presenting to the emergency department with complaints of lower left quadrant, left groin pain x 2 days. Patient states her pain started in the left groin/vaginal area and has now radiated to the left lower quadrant. Patient states the pain has been increasing the last day and a half. Patient reports associated nausea. Patient denies fever, chills, vomiting, diarrhea. Patient's last BM was this morning was regular. Patient does admit to vaginal bleeding and that she is not due to have her period right now. Patient has past medical history of ectopic on the left side, one , and cholecystectomy. Patient denies being on control right now. Patient has no other complaints at this time. - Related Data Home Medications Medication Instructions Recorded Confirmed Ibuprofen [Motrin] 800 mg PO Q6H PRN 09/13/18 09/13/18 Previous Rx's Medication Instructions Recorded Ondansetron Odt [Zofran Odt] 4 mg PO Q8HR PRN #10 tab 09/13/18 Allergies Allergy/AdvReac Type Severity Reaction Status Date / Time No Known Allergies Allergy Verified 09/13/18 10:46 Review of Systems ROS Statement: Those systems with pertinent positive or pertinent negative responses have been documented in the HPI. ROS Other: All systems not noted in ROS Statement are negative. Past Medical History Past Medical History: No Reported History History of Any Multi-Drug Resistant Organisms: None Reported Past Surgical History: Section, Cholecystectomy Additional Past Surgical History / Comment(s): Gallbladder removed , fallopian tube removal Past Anesthesia/Blood Transfusion Reactions: No Reported Reaction Past Psychological History: No Psychological Hx Reported Smoking Status: Never smoker Past Alcohol Use History: None Reported Past Drug Use History: None Reported - Past Family History Mother Family Medical History: No Reported History General Exam - General Exam Comments Initial Comments: GENERAL: Well-appearing, well-nourished and in no acute distress, although appears in pain. HEAD: Atraumatic, normocephalic. EYES: Pupils equal round and reactive to light, extraocular movements intact, sclera anicteric, conjunctiva are normal. ENT: TMs normal, nares patent, oropharynx clear without exudates. Moist mucous membranes. NECK: Normal range of motion, supple without lymphadenopathy or JVD. LUNGS: Breath sounds clear to auscultation bilaterally and equal. No wheezes rales or rhonchi. HEART: Regular rate and rhythm without murmurs, rubs or gallops. ABDOMEN: Patient is very tender in the left lower quadrant and left suprapubic area, with guarding.. Soft, normoactive bowel sounds. No rebound. No masses appreciated. : Deferred EXTREMITIES: Normal range of motion, no pitting or edema. No clubbing or cyanosis. NEUROLOGICAL: Cranial nerves II through XII grossly intact. Normal speech, normal gait. PSYCH: Normal mood, normal affect. SKIN: Warm, Dry, normal turgor, no rashes or lesions noted. Limitations: no limitations Course Vital Signs 09/13/18 09/13/18 09/13/18 10:18 11:52 12:40 Temperature 98.2 F 97.9 F 98.1 F Pulse Rate 76 65 68 Respiratory 18 18 16 Rate Blood Pressure 127/83 104/64 108/70 O2 Sat by Pulse 97 100 98 Oximetry Medical Decision Making - Medical Decision Making Patient is a 28-year-old female with complaints of left lower quadrant and left groin pain 2 days. Patient has associated nausea. Patient denies fever, chills. Patient has history of left ectopic . Patient also admits to some vaginal bleeding but states she is not due to have her period yet. Patient is unsure if she may be . Exam patient has left lower quadrant tenderness and left suprapubic tenderness. CBC, CMP, UA are all within normal limits. Patient is not . Ultrasound was performed and there is no evidence for ovarian torsion. There is a small cyst on the right ovary. Upon recheck of patient patient was feeling improvement in pain and was no longer nausead. Discussed with patient that her vaginal bleeding could be just an early menstrual cycle. Discussed finding with patient and she is okay with being discharged home. Patient will follow up with [facility] and/or PCP if symptoms continue. Return parameters were discussed with patient and she verbalizes understanding. Patient will be discharged home. Case discussed with Dr. Pickard. - Lab Data Result diagrams: 09/13/18 10:55 09/13/18 10:55 Lab Results 09/13/18 09/13/18 09/13/18 Range/Units 10:55 10:55 10:55 WBC 8.1 (3.8-10.6) k/uL RBC 5.19 (3.80-5.40) m/uL Hgb 15.4 (11.4-16.0) gm/dL Hct 44.6 (34.0-46.0) % MCV 86.0 (80.0-100.0) fL MCH 29.7 (25.0-35.0) pg MCHC 34.5 (31.0-37.0) g/dL RDW 14.4 (11.5-15.5) % Plt Count 322 (150-450) k/uL Neutrophils % 55 % Lymphocytes % 38 % Monocytes % 4 % Eosinophils % 0 % Basophils % 0 % Neutrophils # 4.5 (1.3-7.7) k/uL Lymphocytes # 3.1 (1.0-4.8) k/uL Monocytes # 0.3 (0-1.0) k/uL Eosinophils # 0.0 (0-0.7) k/uL Basophils # 0.0 (0-0.2) k/uL Sodium 143 (137-145) mmol/L Potassium 3.9 (3.5-5.1) mmol/L Chloride 105 (98-107) mmol/L Carbon Dioxide 28 (22-30) mmol/L Anion Gap 10 mmol/L BUN 13 (7-17) mg/dL Creatinine 1.03 (0.52-1.04) mg/dL Est GFR (CKD-EPI)AfAm 87 (>60 ml/min/1.73 sqM) Est GFR (CKD-EPI)NonAf 75 (>60 ml/min/1.73 sqM) Glucose 111 H (74-99) mg/dL Calcium 10.0 (8.4-10.2) mg/dL Total Bilirubin 0.6 (0.2-1.3) mg/dL AST 19 (14-36) U/L ALT 37 (9-52) U/L Alkaline Phosphatase 78 (38-126) U/L Total Protein 7.1 (6.3-8.2) g/dL Albumin 3.9 (3.5-5.0) g/dL Urine Color Urine Appearance (Clear) Urine pH (5.0-8.0) Ur Specific [place] (1.001-1.035) Urine Protein (Negative) Urine Glucose (UA) (Negative) Urine Ketones (Negative) Urine Blood (Negative) Urine Nitrite (Negative) Urine Bilirubin (Negative) Urine Urobilinogen (<2.0) mg/dL Ur Leukocyte Esterase (Negative) Urine RBC (0-5) /hpf Urine WBC (0-5) /hpf Ur Squamous Epith Cells (0-4) /hpf Urine Bacteria (None) /hpf Urine Mucus (None) /hpf Urine HCG, Qual Not Detected (Not Detectd) 09/13/18 Range/Units 10:55 WBC (3.8-10.6) k/uL RBC (3.80-5.40) m/uL Hgb (11.4-16.0) gm/dL Hct (34.0-46.0) % MCV (80.0-100.0) fL MCH (25.0-35.0) pg MCHC (31.0-37.0) g/dL RDW (11.5-15.5) % Plt Count (150-450) k/uL Neutrophils % % Lymphocytes % % Monocytes % % Eosinophils % % Basophils % % Neutrophils # (1.3-7.7) k/uL Lymphocytes # (1.0-4.8) k/uL Monocytes # (0-1.0) k/uL Eosinophils # (0-0.7) k/uL Basophils # (0-0.2) k/uL Sodium (137-145) mmol/L Potassium (3.5-5.1) mmol/L Chloride (98-107) mmol/L Carbon Dioxide (22-30) mmol/L Anion Gap mmol/L BUN (7-17) mg/dL Creatinine (0.52-1.04) mg/dL Est GFR (CKD-EPI)AfAm (>60 ml/min/1.73 sqM) Est GFR (CKD-EPI)NonAf (>60 ml/min/1.73 sqM) Glucose (74-99) mg/dL Calcium (8.4-10.2) mg/dL Total Bilirubin (0.2-1.3) mg/dL AST (14-36) U/L ALT (9-52) U/L Alkaline Phosphatase (38-126) U/L Total Protein (6.3-8.2) g/dL Albumin (3.5-5.0) g/dL Urine Color Yellow Urine Appearance Cloudy H (Clear) Urine pH 6.0 (5.0-8.0) Ur Specific [place] 1.020 (1.001-1.035) Urine Protein Trace H (Negative) Urine Glucose (UA) Negative (Negative) Urine Ketones Negative (Negative) Urine Blood Moderate H (Negative) Urine Nitrite Negative (Negative) Urine Bilirubin Negative (Negative) Urine Urobilinogen 2.0 (<2.0) mg/dL Ur Leukocyte Esterase Small H (Negative) Urine RBC 29 H (0-5) /hpf Urine WBC 8 H (0-5) /hpf Ur Squamous Epith Cells 14 H (0-4) /hpf Urine Bacteria Rare H (None) /hpf Urine Mucus Rare H (None) /hpf Urine HCG, Qual (Not Detectd) Disposition Clinical Impression: Abdominal pain Disposition: HOME SELF-CARE Condition: Stable Instructions (If sedation given, give patient instructions): Abdominal Pain (ED) Additional Instructions: Please return to the Emergency Department if symptoms worsen or any other concerns. Follow-up with [facility]/PCP if symptoms continue. Prescriptions: Ondansetron Odt [Zofran Odt] 4 mg PO Q8HR PRN #10 tab PRN Reason: Nausea Is patient prescribed a controlled substance at d/c from ED?: No Referrals: None,Stated [Primary Care Provider] - 1-2 days
[2018-09-13 11:21] LABS: Appearance,Urine Cloudy (Clear); Bacteria,Urine Rare /hpf; Bilirubin,Urine Negative (Negative); Blood,Urine Moderate (Negative); Color,Urine Yellow; Glucose,Urine (UA) Negative (Negative); Ketones,Urine Negative (Negative); Leukocyte Esterase,Urine Small (Negative); Mucus,Urine Rare /hpf; Nitrite,Urine Negative (Negative); Protein,Urine Trace (Negative); RBC,Urine 29 /hpf (0-5); Squamous Epithelial Cell,Urine 14 /hpf (0-4)
[2018-09-13 11:25] LABS: Albumin 3.9 g/dL (3.5-5.0); Potassium 3.9 mmol/L (3.5-5.1); Total Bilirubin 0.6 mg/dL (0.2-1.3); Total Protein 7.1 g/dL (6.3-8.2)
--- NOTE | 2018-09-13 11:46 | US ---
EXAMINATION TYPE: US Transvaginal DATE OF EXAM: 09/13/2018 COMPARISON: NONE CLINICAL HISTORY: Pain. pelvic pain for days that have gotten worse, , , let tube remova l TECHNIQUE: TV. . Transvaginal sonographic images Date of LMP: 08/27/2018 EXAM MEASUREMENTS: Uterus: 8.8 x 5.5 x 3.9 cm Endometrial Stripe: 0.9 cm Right Ovary: 4.0 x 3.7 x 2.8 cm Left Ovary: 2.9 x 2.8 x 2.4 cm 1. Uterus: Anteverted wnl 2. Endometrium: wnl 3. Right Ovary: multiple follicles seen, largest = 1.9cm 4. Left Ovary: multiple follicles seen under 1cm Spectral, color and waveform doppler imaging shows good arterial and venous flow within the ovaries ; there is no evidence for ovarian torsion. 5. Bilateral Adnexa: wnl 6. Posterior cul-de-sac: wnl IMPRESSION: 1. Right ovarian cyst measuring 1.9 cm. 2. Multiple bilateral ovarian follicles.
[2018-09-13 12:41] VITALS: BP 108/70; PULSE 68; RESP 16; TEMP 98.1
== END 2018-09-13 12:40 | disposition home or self-care (01) ==
LOC: EC 10:16
DX: R10.32 Left lower quadrant pain (principal); R11.0 Nausea; N93.9 Abnormal uterine and vaginal bleeding, unspecified; N83.201 Unspecified ovarian cyst, right side; Z32.02 Encounter for pregnancy test, result negative; Z90.49 Acquired absence of other specified parts of digestive tract; Z90.79 Acquired absence of other genital organ(s); Z87.59 Personal history of other complications of pregnancy, childbirth and the puerperium
CPT/HCPCS: 36415; 80053; 85025; 81001; 81025; 93975; 76830; 99284; 96374; 96375; 96361; J2270; J2405

== ENCOUNTER 2019-08-09 22:16 | Emergency (ER) | payer BC ==
[2019-08-09] MEDS ORDERED: diphenhydrAMINE 50 MG/ML 1 ML VIAL IVP STA (23:07)
[2019-08-09] MEDS ORDERED: SODIUM CHLORIDE 0.9% 1,000 ML IV STA (23:07)
[2019-08-09] MEDS ORDERED: METOCLOPRAMIDE 5 MG/ML 2 ML VIAL IVP STA (23:07)
[2019-08-09] MEDS ORDERED: KETOROLAC 30 MG/ML 1 ML VIAL IVP STA (23:07)
[2019-08-09 23:10] LABS: Appearance,Urine Clear (Clear); Bilirubin,Urine Negative (Negative); Blood,Urine Small (Negative); Color,Urine Yellow; Glucose,Urine (UA) Negative (Negative); Ketones,Urine Trace (Negative); Leukocyte Esterase,Urine Negative (Negative); Mucus,Urine Rare /hpf; Nitrite,Urine Negative (Negative); PH, Urine 6.5 (5.0-8.0); Protein,Urine Trace (Negative); RBC,Urine 4 /hpf (0-5); Specific Gravity,Urine 1.016 (1.001-1.035); Squamous Epithelial Cell,Urine 1 /hpf (0-4); WBC,Urine 2 /hpf (0-5)
--- NOTE | 2019-08-09 23:53 | ED ---
Headache HPI - General Mode of arrival: ambulatory Limitations: no limitations <Victor Manuel Smith - Last Filed: 08/10/19 00:07> <Sarah De Leon - Last Filed: 08/10/19 02:58> - General Chief Complaint: Headache Stated Complaint: Headache, vision problems Time Seen by Provider: 08/09/19 22:49 - History of Present Illness Initial Comments: Patient is 29-year-old female with history of headache presenting to the emergency department with a chief complaint of a headache. Patient states increased on and off headaches over the last month. States over the last few days the pain is increasing severity. States her primary care physician prescribed her Topamax which is not helping to alleviate his symptoms. Patient reports pain is located in bilateral temporal region. Denies any trauma to the area. Patient also reports some visual changes which she describes as "things are moving in slow motion". Visual changes are intermittent. States this most recent headache was a gradual onset and is not the worst headache of her life. She does report nausea but no vomiting. Does report mild photosensitivity. No family history of aneurysms. States her primary care physician gave her referral for mill worker which is currently pending. (Victor Manuel Smith) - Related Data Home Medications Medication Instructions Recorded Confirmed Ibuprofen [Motrin] 800 mg PO Q6H PRN 09/13/18 09/13/18 Previous Rx's Medication Instructions Recorded Ondansetron Odt [Zofran Odt] 4 mg PO Q8HR PRN #10 tab 09/13/18 Allergies Allergy/AdvReac Type Severity Reaction Status Date / Time No Known Allergies Allergy Verified 08/09/19 22:39 Review of Systems ROS Other: All systems not noted in ROS Statement are negative. <Victor Manuel Smith - Last Filed: 08/10/19 00:07> ROS Other: All systems not noted in ROS Statement are negative. <Sarah De Leon - Last Filed: 08/10/19 02:58> ROS Statement: Those systems with pertinent positive or pertinent negative responses have been documented in the HPI. Past Medical History Past Medical History: No Reported History History of Any Multi-Drug Resistant Organisms: None Reported Past Surgical History: Section, Cholecystectomy Additional Past Surgical History / Comment(s): Gallbladder removed , fallopian tube removal Past Anesthesia/Blood Transfusion Reactions: No Reported Reaction Past Psychological History: Anxiety Smoking Status: Never smoker Past Alcohol Use History: Occasional Past Drug Use History: None Reported - Past Family History Mother Family Medical History: No Reported History <Victor Manuel Smith - Last Filed: 08/10/19 00:07> General Exam Limitations: no limitations General appearance: alert, in no apparent distress Head exam: Present: atraumatic, normocephalic, normal inspection Eye exam: Present: normal appearance, PERRL, EOMI, other (No pain with extraocular movements). Absent: scleral icterus, conjunctival injection, nystagmus, periorbital swelling, periorbital tenderness Pupils: Present: normal accommodation. Absent: irregular, unequal, miosis ENT exam: Present: normal exam, normal oropharynx, mucous membranes moist Neck exam: Present: normal inspection, full ROM Respiratory exam: Present: normal lung sounds bilaterally. Absent: respiratory distress, wheezes, rales Cardiovascular Exam: Present: regular rate, normal rhythm, normal heart sounds Extremities exam: Present: normal inspection, full ROM Back exam: Present: normal inspection, full ROM Neurological exam: Present: alert, oriented X3 Psychiatric exam: Present: normal affect, normal mood Skin exam: Present: warm, dry, intact, normal color <Victor Manuel Smith - Last Filed: 08/10/19 00:07> Course Vital Signs 08/09/19 08/09/19 22:36 23:50 Temperature 99.5 F Pulse Rate 85 86 Respiratory 18 18 Rate Blood Pressure 133/71 118/87 O2 Sat by Pulse 98 99 Oximetry Medical Decision Making <Victor Manuel Smith - Last Filed: 08/10/19 00:07> <Sarah De Leon - Last Filed: 08/10/19 02:58> - Medical Decision Making Patient care transferred to Dr. De Leon. (Victor Manuel Smith) Patient care was signed out to me this is a pleasant 29-year-old female who is been having atypical migraines for approximately 3 months. She has vision involvement with associated nausea. She seemed primary care and had a vision evaluation with no definitive diagnosis. She's been prescribed Topamax. Considering the onset of these and the frequency a head CT was ordered and re sulted with no significant abnormality. She was reevaluated reported some improvement in her headache after the medications given. At this time patient's comfortable with plan for discharge home I offered to send her home with antiemetics however she reports that her primary care has prescribe some so she doesn't need any. All questions pertaining care were answered return parameters were discussed patient was discharged home in stable condition. (Sarah De Leon) - Lab Data Lab Results 08/09/19 08/09/19 Range/Units 22:57 22:57 Urine Color Yellow Urine Appearance Clear (Clear) Urine pH 6.5 (5.0-8.0) Ur Specific [place] 1.016 (1.001-1.035) Urine Protein Trace H (Negative) Urine Glucose (UA) Negative (Negative) Urine Ketones Trace H (Negative) Urine Blood Small H (Negative) Urine Nitrite Negative (Negative) Urine Bilirubin Negative (Negative) Urine Urobilinogen 2.0 (<2.0) mg/dL Ur Leukocyte Esterase Negative (Negative) Urine RBC 4 (0-5) /hpf Urine WBC 2 (0-5) /hpf Ur Squamous Epith Cells 1 (0-4) /hpf Urine Mucus Rare H (None) /hpf Urine HCG, Qual Not Detected (Not Detectd) Disposition <Victor Manuel Smith - Last Filed: 08/10/19 00:07> Is patient prescribed a controlled substance at d/c from ED?: No <Sarah De Leon - Last Filed: 08/10/19 02:58> Clinical Impression: Headache Disposition: HOME SELF-CARE Condition: Stable Instructions (If sedation given, give patient instructions): Acute Headache (ED) Referrals: Kristopher Glez MD [Primary Care Provider] - 1-2 days
--- NOTE | 2019-08-10 01:31 | CT ---
EXAMINATION TYPE: CT brain wo con DATE OF EXAM: 08/10/2019 COMPARISON: None HISTORY: AMS, Vision Problems CT DLP: 1150.4 mGycm Automated exposure control for dose reduction was used. Ventricles have normal size. There is no mass effect nor midline shift. There is no sign of intracran ial hemorrhage. Calvarium is intact. There is no evidence of cerebral edema. IMPRESSION: Negative unenhanced head CT scan.
[2019-08-10 03:22] VITALS: BP 106/65; PULSE 87; RESP 16; TEMP 97.9
== END 2019-08-10 03:23 | disposition home or self-care (01) ==
LOC: EC 22:16
DX: G43.909 Migraine, unspecified, not intractable, without status migrainosus (principal); Z90.49 Acquired absence of other specified parts of digestive tract
CPT/HCPCS: 81001; 81025; 70450; 99284; 96374; 96375 ×2; 96361 ×3; J1200; J2765; J1885

== ENCOUNTER 2020-03-09 18:20 | Emergency (ER) | payer BC ==
[2020-03-09 18:28] VITALS: RESP 18; TEMP 97.7
[2020-03-09] MEDS ORDERED: SODIUM CHLORIDE 0.9% 1,000 ML IV ONE (20:02)
[2020-03-09 20:06] LABS: Appearance,Urine Clear (Clear); Bilirubin,Urine Negative (Negative); Blood,Urine Trace (Negative); Color,Urine Light Yellow; Glucose,Urine (UA) Negative (Negative); Ketones,Urine Negative (Negative); Leukocyte Esterase,Urine Negative (Negative); Nitrite,Urine Negative (Negative); PH, Urine 6.5 (5.0-8.0); Protein,Urine Negative (Negative); RBC,Urine 1 /hpf (0-5); Specific Gravity,Urine 1.004 (1.001-1.035); Squamous Epithelial Cell,Urine <1 /hpf (0-4); Urobilinogen,Urine <2.0 mg/dL (<2.0); WBC,Urine <1 /hpf (0-5)
--- NOTE | 2020-03-09 20:15 | ED ---
Abdominal Pain HPI - General Chief Complaint: Abdominal Pain Stated Complaint: 6 wks preg/abd pain Time Seen by Provider: 03/09/20 19:58 Source: patient Mode of arrival: ambulatory Limitations: no limitations - History of Present Illness Initial Comments: 29-year-old female patient who is G6, P3 with history of 2 miscarriages presents to the emergency department today for evaluation of a dull aching pain to the right lower quadrant. Patient states her last menstrual period was 01/27/2020. States on 1226 she did have some mild spotting which did resolve. States that she has had this dull aching pain to the right lower quadrant for the last 3-4 days. States she called her [facility] and was recommended to come to the emergency department for further evaluation. Patient has had no testing up to this point. She denies any current abnormal vaginal bleeding or discharge. Denies hematuria, dysuria, urinary urgency but states she does have urinary frequency. Reports mild nausea but no vomiting. Denies any constipation or diarrhea. Dr. Medina is her [facility]. Patient denies any recent rash, fever, chills, cough, shortness of breath, chest pain, back pain, numbness, tingling, dizziness, weakness, headache, visual changes, or any other complaints. - Related Data Home Medications Medication Instructions Recorded Confirmed Ibuprofen [Motrin] 800 mg PO Q6H PRN 09/13/18 09/13/18 Previous Rx's Medication Instructions Recorded Ondansetron Odt [Zofran Odt] 4 mg PO Q8HR PRN #10 tab 09/13/18 Allergies Allergy/AdvReac Type Severity Reaction Status Date / Time topiramate [From Topamax] Allergy Unknown Verified 03/09/20 18:28 Review of Systems ROS Statement: Those systems with pertinent positive or pertinent negative responses have been documented in the HPI. ROS Other: All systems not noted in ROS Statement are negative. Past Medical History Past Medical History: No Reported History History of Any Multi-Drug Resistant Organisms: None Reported Past Surgical History: Section, Cholecystectomy Additional Past Surgical History / Comment(s): Gallbladder removed , fallopian tube removal Past Anesthesia/Blood Transfusion Reactions: No Reported Reaction Past Psychological History: Anxiety Smoking Status: Never smoker Past Alcohol Use History: Occasional Past Drug Use History: None Reported - Past Family History Mother Family Medical History: No Reported History General Exam Limitations: no limitations General appearance: alert, in no apparent distress, other (Physical well-de veloped, well-nourished adult female patient in no acute distress. Vital signs upon presentation temperature 97.7F, pulse 84, respirations 18, blood pressure 124/77, pulse ox 100% on room air.) Eye exam: Present: normal appearance, PERRL, EOMI. Absent: scleral icterus, co njunctival injection, periorbital swelling ENT exam: Present: normal exam, normal oropharynx, mucous membranes moist Respiratory exam: Present: normal lung sounds bilaterally. Absent: respiratory distress, wheezes, rales, rhonchi, stridor Cardiovascular Exam: Present: regular rate, normal rhythm, normal heart sounds. Absent: systolic murmur, diastolic murmur, rubs, gallop, clicks GI/Abdominal exam: Present: soft, tenderness (Mild right pelvic tenderness), normal bowel sounds. Absent: distended, guarding, rebound, rigid Neurological exam: Present: alert, oriented X3, CN II-XII intact Psychiatric exam: Present: normal affect, normal mood Skin exam: Present: warm, dry, intact, normal color. Absent: rash Course Vital Signs 03/09/20 18:26 Temperature 97.7 F Pulse Rate 84 Respiratory 18 Rate Blood Pressure 124/77 O2 Sat by Pulse 100 Oximetry Medical Decision Making - Medical Decision Making 29-year-old female patient presents to the emergency department today for evaluation of a dull ache to the right lower pelvic region. Patient is reporting being 6 weeks with last period 01/27/2020. Physical examination was relatively unremarkable. Pelvic exam showed no cervical motion tenderness no adnexal tenderness or mass. Labs reviewed and did reveal elevated white blood cell count 11.3, hemoglobin 16.7. Urinalysis was negative for infection. Trichomonas was negative. Remainder of vaginal cultures are pending. Ultrasound showed a viable measuring 5 weeks 5 days with a heart rate of 100. No Acute process seen at this time. I did discuss findings and results with the patient. She'll be discharged follow up with Dr. Medina her [facility] as soon as possible. Return parameters were discussed in detail. She verbalizes understanding and agrees with this plan. - Lab Data Result diagrams: 03/09/20 20:26 03/09/20 20:26 Lab Results 03/09/20 03/09/20 03/09/20 Range/Units 20:00 20:26 20:26 WBC 11.3 H (3.8-10.6) k/uL RBC 5.44 H (3.80-5.40) m/uL Hgb 16.7 H (11.4-16.0) gm/dL Hct 46.4 H (34.0-46.0) % MCV 85.4 (80.0-100.0) fL MCH 30.8 (25.0-35.0) pg MCHC 36.0 (31.0-37.0) g/dL RDW 12.1 (11.5-15.5) % Plt Count 285 (150-450) k/uL MPV 6.3 Neutrophils % 70 % Lymphocytes % 22 % Monocytes % 5 % Eosinophils % 1 % Basophils % 1 % Neutrophils # 7.9 H (1.3-7.7) k/uL Lymphocytes # 2.5 (1.0-4.8) k/uL Monocytes # 0.6 (0-1.0) k/uL Eosinophils # 0.1 (0-0.7) k/uL Basophils # 0.1 (0-0.2) k/uL Sodium 135 L (137-145) mmol/L Potassium 4.5 (3.5-5.1) mmol/L Chloride 104 (98-107) mmol/L Carbon Dioxide 27 (22-30) mmol/L Anion Gap 4 mmol/L BUN 8 (7-17) mg/dL Creatinine 0.71 (0.52-1.04) mg/dL Est GFR (CKD-EPI)AfAm >90 (>60 ml/min/1.73 sqM) Est GFR (CKD-EPI)NonAf >90 (>60 ml/min/1.73 sqM) Glucose 89 (74-99) mg/dL Calcium 9.3 (8.4-10.2) mg/dL Total Bilirubin 0.5 (0.2-1.3) mg/dL AST 58 H (14-36) U/L ALT 72 H (4-34) U/L Alkaline Phosphatase 73 (38-126) U/L Total Protein 7.1 (6.3-8.2) g/dL Albumin 3.7 (3.5-5.0) g/dL Urine Color Light Yellow Urine Appearance Clear (Clear) Urine pH 6.5 (5.0-8.0) Ur Specific [place] 1.004 (1.001-1.035) Urine Protein Negative (Negative) Urine Glucose (UA) Negative (Negative) Urine Ketones Negative (Negative) Urine Blood Trace H (Negative) Urine Nitrite Negative (Negative) Urine Bilirubin Negative (Negative) Urine Urobilinogen <2.0 (<2.0) mg/dL Ur Leukocyte Esterase Negative (Negative) Urine RBC 1 (0-5) /hpf Urine WBC <1 (0-5) /hpf Ur Squamous Epith Cells <1 (0-4) /hpf Trichomonas Ag (Rapid) (Negative) Blood Type Blood Type Recheck Bld Type Recheck Status 03/09/20 03/09/20 Range/Units 20:26 20:41 WBC (3.8-10.6) k/uL RBC (3.80-5.40) m/uL Hgb (11.4-16.0) gm/dL Hct (34.0-46.0) % MCV (80.0-100.0) fL MCH (25.0-35.0) pg MCHC (31.0-37.0) g/dL RDW (11.5-15.5) % Plt Count (150-450) k/uL MPV Neutrophils % % Lymphocytes % % Monocytes % % Eosinophils % % Basophils % % Neutrophils # (1.3-7.7) k/uL Lymphocytes # (1.0-4.8) k/uL Monocytes # (0-1.0) k/uL Eosinophils # (0-0.7) k/uL Basophils # (0-0.2) k/uL Sodium (137-145) mmol/L Potassium (3.5-5.1) mmol/L Chloride (98-107) mmol/L Carbon Dioxide (22-30) mmol/L Anion Gap mmol/L BUN (7-17) mg/dL Creatinine (0.52-1.04) mg/dL Est GFR (CKD-EPI)AfAm (>60 ml/min/1.73 sqM) Est GFR (CKD-EPI)NonAf (>60 ml/min/1.73 sqM) Glucose (74-99) mg/dL Calcium (8.4-10.2) mg/dL Total Bilirubin (0.2-1.3) mg/dL AST (14-36) U/L ALT (4-34) U/L Alkaline Phosphatase (38-126) U/L Total Protein (6.3-8.2) g/dL Albumin (3.5-5.0) g/dL Urine Color Urine Appearance (Clear) Urine pH (5.0-8.0) Ur Specific [place] (1.001-1.035) Urine Protein (Negative) Urine Glucose (UA) (Negative) Urine Ketones (Negative) Urine Blood (Negative) Urine Nitrite (Negative) Urine Bilirubin (Negative) Urine Urobilinogen (<2.0) mg/dL Ur Leukocyte Esterase (Negative) Urine RBC (0-5) /hpf Urine WBC (0-5) /hpf Ur Squamous Epith Cells (0-4) /hpf Trichomonas Ag (Rapid) Negative (Negative) Blood Type O Negative Blood Type Recheck O Neg Bld Type Recheck Status No - Radiology Data Radiology results: report reviewed, image reviewed Ultrasound of the fetus is obtained. Report was reviewed in its entirety. Impression by Dr. White shows ultrasound astasia age is 5 weeks 5 days. Estimated date of delivery is 11/04/2020. No complicating processing. Disposition Clinical Impression: Abdominal pain during Disposition: HOME SELF-CARE Condition: Good Instructions (If sedation given, give patient instructions): Abdominal Pain in (ED) Additional Instructions: Increase fluids. Rest. Follow-up through primary care physician and [facility] for recheck in 1-2 days. Return to the emergency department for any new, worsening, or concerning symptoms. Is patient prescribed a controlled substance at d/c from ED?: No Referrals: Lc Fox MD [Primary Care Provider] - 1-2 days Katie Medina DO [Doctor of Osteopathic Medicine] - 1-2 days Time of Disposition: 21:52
[2020-03-09 20:37] LABS: Basophils # (A) 0.1 k/uL (0-0.2); Basophils % (A) 1 %; Eosinophils # (A) 0.1 k/uL (0-0.7); Eosinophils % (A) 1 %; HCT 46.4 % (34.0-46.0); HGB 16.7 gm/dL (11.4-16.0); Lymphocytes # (A) 2.5 k/uL (1.0-4.8); Lymphocytes % (A) 22 %; MCH 30.8 pg (25.0-35.0); MCV 85.4 fL (80.0-100.0); Mean Platelet Volume 6.3; Monocytes # (A) 0.6 k/uL (0-1.0); Monocytes % (A) 5 %; Neutrophils # (A) 7.9 k/uL (1.3-7.7); Neutrophils % (A) 70 %; Platelet Count 285 k/uL (150-450); RBC 5.44 m/uL (3.80-5.40); RDW 12.1 % (11.5-15.5); WBC 11.3 k/uL (3.8-10.6)
[2020-03-09] MEDS ORDERED: SODIUM CHLORIDE 0.9% 500 ML 500 ML IV ONE (20:58)
--- NOTE | 2020-03-09 21:13 | US ---
EXAMINATION TYPE: Transabdominal DATE OF EXAM: 03/09/2020 8:59 PM COMPARISON: NONE CLINICAL HISTORY: pain. pelvic discomfort, no bleeding, A2 EXAM PERFORMED: OBTA EXAM MEASUREMENTS: GESTATIONAL AGE / DATING Physician Established: Not yet established Dates by LMP: (6 weeks/0 days) EDC: 11/02/2020 Dates by First Scan: No previous this is first scan Dates by Current Scan for: (6 weeks/0 days) EDC: 11/04/2020 MATERNAL ANATOMY Uterus: 9.0 x 6.4 x 5.1cm Right Ovary: 2.4 x 1.8 x 1.8cm Left Ovary: 3.4 x 3.6 x 2.8cm Post CDS / Adnexa: wnl Presence of free fluid: no Presence of corpus luteal cyst: 2.4cm left ovary Presence of subchorionic bleed: no GESTATION / SURVEY CRL: 0.2cm ( 5 weeks/4 days) MSD: 1.4cm (5 weeks/4 days) Yolk Sac (normal less than 6mm): 0.3cm Heart Rate: 100 bpm Rhythm: low end of normal IUP: Viable IUP Date of LMP: 01/27/2020 Beta HcG (if available): pending IMPRESSION: The ultrasound gestational age is 5 weeks and 5 days. The BLAISE is 11/04/2020. No complicating process se en.
[2020-03-09 21:48] LABS: ALT 72 U/L (4-34); AST 58 U/L (14-36); African American GFR (CKD) >90 (>60 ml/min/1.73 sqM); Albumin 3.7 g/dL (3.5-5.0); Alkaline Phosphatase 73 U/L (38-126); Anion Gap 4 mmol/L; Blood Urea Nitrogen 8 mg/dL (7-17); Calcium 9.3 mg/dL (8.4-10.2); Carbon Dioxide 27 mmol/L (22-30); Chloride 104 mmol/L (98-107); Glucose 89 mg/dL (74-99); Non-African American GFR(CKD) >90 (>60 ml/min/1.73 sqM); Potassium 4.5 mmol/L (3.5-5.1); Sodium 135 mmol/L (137-145); Total Bilirubin 0.5 mg/dL (0.2-1.3); Total Protein 7.1 g/dL (6.3-8.2)
[2020-03-09 22:12] VITALS: BP 119/80; PULSE 79
[2020-03-09 22:59] LABS: HCG,Quantitative Serum 29739.6 mIU/mL
[2020-03-10 12:54] LABS: C. trachomatis,PCR Negative (Neg,Equiv); Chlamydia trachomatis Source Vagina; N. gonorrhoeae,PCR Negative (Neg,Equiv); Neisseria Source Vagina
== END 2020-03-09 22:11 | disposition home or self-care (01) ==
LOC: EC 18:20
DX: O26.891 Other specified pregnancy related conditions, first trimester (principal); Z3A.01 Less than 8 weeks gestation of pregnancy; Z88.8 Allergy status to other drugs, medicaments and biological substances; Z90.49 Acquired absence of other specified parts of digestive tract
CPT/HCPCS: 36415; 76801; 80053; 81001; 84702; 85025; 86900; 86901; 87070; 87491; 87591; 87808; 96360; 96361; 99284

== ENCOUNTER → 2020-10-03 | Outpatient (CLI) | payer BC ==
[~2020-10-03] MED LIST: BUTORPHANOL 1 MG/ML 1 ML VIAL IV ONE; METOCLOPRAMIDE 5 MG/ML 2 ML VIAL IVP STA; ONDANSETRON 4 MG/2 ML VIAL IVP STA
[2020-10-03 10:35] LABS: Amorphous Sediment,Urine Moderate /hpf; Appearance,Urine Turbid (Clear); Bacteria,Urine Rare /hpf; Bilirubin,Urine Negative (Negative); Blood,Urine Trace (Negative); Color,Urine Yellow; Glucose,Urine (UA) Negative (Negative); Ketones,Urine Negative (Negative); Leukocyte Esterase,Urine Negative (Negative); Mucus,Urine Rare /hpf; Nitrite,Urine Negative (Negative); Protein,Urine Negative (Negative); RBC,Urine 8 /hpf (0-5); Specific Gravity,Urine 1.011 (1.001-1.035); Squamous Epithelial Cell,Urine <1 /hpf (0-4); Urobilinogen,Urine <2.0 mg/dL (<2.0); WBC,Urine <1 /hpf (0-5)
[2020-10-03] MEDS: LACTATED RINGERS 1,000 ML IV ONE ×2 (10:50→11:51)
[2020-10-03 11:15] LABS: ALT 11 U/L (4-34); AST 22 U/L (14-36); African American GFR (CKD) >90 (>60 ml/min/1.73 sqM); Albumin 2.8 g/dL (3.5-5.0); Alkaline Phosphatase 179 U/L (38-126); Anion Gap 7 mmol/L; Blood Urea Nitrogen 5 mg/dL (7-17); Carbon Dioxide 22 mmol/L (22-30); Chloride 107 mmol/L (98-107); Glucose 94 mg/dL (74-99); Non-African American GFR(CKD) >90 (>60 ml/min/1.73 sqM); Potassium 3.8 mmol/L (3.5-5.1); Sodium 136 mmol/L (137-145); Total Bilirubin 0.3 mg/dL (0.2-1.3); Total Protein 5.9 g/dL (6.3-8.2)
[2020-10-03 11:27] LABS: Basophils % (A) 0 %; Eosinophils % (A) 0 %; HCT 39.3 % (34.0-46.0); HGB 13.5 gm/dL (11.4-16.0); Lymphocytes # (A) 1.9 k/uL (1.0-4.8); Lymphocytes % (A) 20 %; MCH 30.8 pg (25.0-35.0); MCHC 34.4 g/dL (31.0-37.0); MCV 89.6 fL (80.0-100.0); Mean Platelet Volume 7.5; Monocytes # (A) 0.5 k/uL (0-1.0); Monocytes % (A) 5 %; Neutrophils % (A) 73 %; Platelet Count 251 k/uL (150-450); RBC 4.39 m/uL (3.80-5.40); RDW 13.5 % (11.5-15.5); WBC 9.6 k/uL (3.8-10.6)
--- NOTE | 2020-10-03 12:37 | US ---
EXAMINATION TYPE: US kidneys/renal and bladder DATE OF EXAM: 10/03/2020 COMPARISON: NONE CLINICAL HISTORY: right flank pain, rule out kidney stones. Patient is 35 weeks . EXAM MEASUREMENTS: Right Kidney: 13.1 x 5.2 x 7.2 cm Left Kidney: 12.2 x 4.3 x 4.0 cm Right Kidney: mild to moderate hydronephrosis, no definite stone seen. Left Kidney: No hydronephrosis or masses seen Bladder: wnl Bilateral Jets seen: No IMPRESSION: Mild to moderate right hydronephrosis.
[2020-10-03 14:32] VITALS: BP 131/78; PULSE 82; RESP 18; TEMP 97.6
--- NOTE | 2020-10-04 08:11 | P.MSEPDOC ---
Presenting Problems - Arrival Data Date of Arrival on Unit: 10/03/20 Time of Arrival on Unit: 09:52 Mode of Transport: Wheelchair - Complaint OB-Reason for Admission/Chief Complaint: Pain Comment: pt presents to triage for right flank pain that is constant, causing nausea and vomiting Medical History - Information : 7 Para: 3 Term: 3 : 0 Abortions: Spontaneous or Elective: 2 Number of Living Children: 3 - Gestational Age Gestational Age by BLAISE (wks/days): 35 Weeks and 5 Days Review of Systems - Review of Systems Constitutional: No problems Breast: No problems ENT: No problems Cardiovascular: No problems Respiratory: No problems Gastrointestinal: No problems Genitourinary: No problems Musculoskeletal: No problems Neurological: No problems Skin: No problems Vital Signs - Temperature Temperature: 97.6 F Temperature Source: Temporal Artery Scan - Pulse Right Brachial Pulse Rate: 82 Pulse Assessment Method: Automatic Cuff - Respirations Respiratory Rate: 18 Oxygen Delivery Method: Room Air - Blood Pressure Right Arm Blood Pressure: 131/78 Blood Pressure Mean: 95 Blood Pressure Source: Automatic Cuff Medical Screen Scoring - Cervical Exam Dilation (cm): 1 Effacement (%): 50 Station: -2 Membranes: Intact - Assessment - Baby A Baseline FHR: 120 Heart Rate - NICHD Category: Category I (Normal) NST: Reactive Physician Notification - Physician Notified Physician Notified Date: 10/03/20 Physician Notified Time: 10:30 Physician: Patrick Martins New Order Received: Yes - Notification Comment Comment: pt was given IVF bolus, labs drawn and ultrasound performed, antiemetics and pain meds given, pt given instructions on self care at home, pain meds reduced pain down to 3/10 Maternal Triage Index - Maternal Triage Index Presenting for scheduled procedure w/no complaint: No - Stat/Priority 1 Stat Priority 1: No - Urgent/Priority 2 Urgent Priority 2: Yes Provider Notified: Patrick Martins Provider Notified Time: 10:34 Criteria Met for Priority 2: pt presents to triage with right flank pain rating pain at 7/10, causing N/V Disposition - Disposition OB Disposition: Triage, Discharge to home, Written follow up instructions reviewed Discharge Date: 10/03/20 Discharge Time: 13:15 I agree with the RN Medical Screening Exam: Yes Case reviewed; plan agreed upon as documented in EMR&OBIX.: Yes Diagnosis: PAIN, UNSPECIFIED (Patient presents to labor and delivery with complaints of flank pain. Urinalysis did have some microscopic hematuria however kidney ultrasound for the most part was negative without evidence of a kidney stone. Patient's clinical history however was very suggestive of this finding. Patient was given IV hydration and one dose of pain medications. Patient was feeling much better and felt to be stable for discharge home follow up with Dr. Medina as an outpatient.)
== END ==
LOC: FBPOP 09:52
PROVIDERS: ATTEND Obstetrics & Gynecology
DX: O26.893 Other specified pregnancy related conditions, third trimester (principal); R10.9 Unspecified abdominal pain; Z3A.35 35 weeks gestation of pregnancy; Z88.8 Allergy status to other drugs, medicaments and biological substances
CPT/HCPCS: 59025; 99214; 96374; 96375; 80053; 85025; 81001; 76770; J2765; J0595; J2405

== ENCOUNTER 2020-10-19 15:45 | Outpatient (CLI) | payer BC ==
[2020-10-19] MEDS ORDERED: ONDANSETRON 4 MG/2 ML VIAL IVP STA (16:36)
[2020-10-19] MEDS: LACTATED RINGERS 1,000 ML IV SCH ×2 (17:01→19:03)
[2020-10-19 17:04] LABS: Appearance,Urine Cloudy (Clear); Bacteria,Urine Few /hpf; Bilirubin,Urine Negative (Negative); Blood,Urine Moderate (Negative); Color,Urine Yellow; Glucose,Urine (UA) Negative (Negative); Hyaline Casts,Urine 3 /lpf (0-2); Ketones,Urine 4+ (Negative); Leukocyte Esterase,Urine Small (Negative); Mucus,Urine Many /hpf; Nitrite,Urine Negative (Negative); Protein,Urine 2+ (Negative); RBC,Urine 150 /hpf (0-5); Specific Gravity,Urine 1.036 (1.001-1.035); Squamous Epithelial Cell,Urine 13 /hpf (0-4); Urobilinogen,Urine <2.0 mg/dL (<2.0); WBC,Urine 11 /hpf (0-5)
[2020-10-19 19:14] VITALS: BP 125/73; PULSE 106; RESP 18; TEMP 98.4
--- NOTE | 2020-10-20 20:58 | P.MSEPDOC ---
Presenting Problems - Arrival Data Date of Arrival on Unit: 10/19/20 Time of Arrival on Unit: 15:45 Mode of Transport: Wheelchair - Complaint OB-Reason for Admission/Chief Complaint: Acute Nausea/Vomiting, Signs/Symptoms UTI Comment: N/V/D, cramping, burning with urination Medical History - Information : 7 Para: 3 Term: 3 : 0 Abortions: Spontaneous or Elective: 3 Number of Living Children: 3 - Gestational Age Gestational Age by BLAISE (wks/days): 38 Weeks and 0 Days - History Complications: Prior Comment: Review of Systems - Review of Systems Constitutional: No problems Breast: No problems ENT: No problems Cardiovascular: No problems Respiratory: No problems Gastrointestinal: No problems Genitourinary: No problems Musculoskeletal: No problems Neurological: No problems Skin: No problems Vital Signs - Temperature Temperature: 98.4 F Temperature Source: Oral - Pulse Pulse Oximetery Pulse Rate: 106 Pulse Assessment Method: Pulse Oximetry - Respirations Respiratory Rate: 18 Oxygen Delivery Method: Room Air O2 Sat by Pulse Oximetry: 98 - Blood Pressure Right Arm Blood Pressure: 125/73 Blood Pressure Mean: 90 Blood Pressure Source: Automatic Cuff Medical Screen Scoring - Cervical Exam Dilation (cm): 4 Effacement (%): 60 Station: -2 Membranes: Intact - Uterine Contractions Frequency From (mins): 3 Frequency To (mins): 5 Duration From (seconds): 50 Duration To (seconds): 60 Intensity: Mild Resting: Soft to palpation - Assessment - Baby A Baseline FHR: 135 Heart Rate - NICHD Category: Category I (Normal) NST: Reactive Physician Notification - Physician Notified Physician Notified Date: 10/19/20 Physician Notified Time: 16:35 Physician: Katie Medina New Order Received: Yes - Notification Comment Comment: [id number] - Dr. Medina called, report given on maternal and status, maternal. complaints of N/V/D and abdominal cramping since 0300, burning with urination starting. this afternoon and SOB at times (mainly after vomitting). Pt's initial temporal temp was. 99.1, oral temp 98.4, but pt feels warm. Pt took tylenol at 1500. Contractions every. 2-4mins, SVE 4/60/-2. UA sent, urine appears dark. Orders for a IV, 1L LR, IVP Zofran. 4mg, covid and influenza swabs. 1810 - Dr. Medina called, update given on pt's status, negative COVID and Influenza,. UA results (see meditech), pt feels better after 1L of LR and zofran but is feeling her. contractions more. SVE remains the same at 60/-2. Orders to see if pt can eat a. popsicle without vomitting and if she can she can be discharged home Maternal Triage Index - Maternal Triage Index Presenting for scheduled procedure w/no complaint: No - Stat/Priority 1 Stat Priority 1: No - Urgent/Priority 2 Urgent Priority 2: No - Prompt/Priority 3 Prompt Priority 3: No - Non-Urgent/Priority 4 Non-Urgent Priority 4: Yes Criteria Met for Priority 4: N/V/D, cramping , burning with urination at 38 weeks Disposition - Disposition OB Disposition: Discharge to home Discharge Date: 10/19/20 Discharge Time: 18:42 I agree with the RN Medical Screening Exam: Yes Case reviewed; plan agreed upon as documented in EMR&OBIX.: Yes Diagnosis: VOMITING, UNSPECIFIED
== END 2020-10-19 18:42 | disposition home or self-care (01) ==
LOC: FBPOP 15:45
PROVIDERS: ATTEND Obstetrics & Gynecology
DX: O21.9 Vomiting of pregnancy, unspecified (principal); Z3A.38 38 weeks gestation of pregnancy; Z88.8 Allergy status to other drugs, medicaments and biological substances
CPT/HCPCS: 59025; 99214; 96361; 96374; 84112; 81001; 87086; 87502; 87635; J2405

== ENCOUNTER 2020-10-27 05:58 | Inpatient (IN) | payer BC ==
[2020-10-27] MEDS ORDERED: TERBUTALINE 1 MG/ML VIAL SQ PRN (06:08)
[2020-10-27] MEDS ORDERED: LIDOCAINE 0.5% (PF) 5 MG/ML (50 ML SDV) SQ PRN (06:08)
[2020-10-27] MEDS ORDERED: CARBOPROST TROMETHAMINE 250 MCG/ML 1 ML AMP IM PRN (06:08)
[2020-10-27] MEDS ORDERED: OXYTOCIN 10 UNIT/ML 1 ML VIAL IM PRN (06:08)
[2020-10-27] MEDS ORDERED: METHYLERGONOVINE 0.2 MG/ML 1 ML AMP IM PRN (06:08)
[2020-10-27] MEDS ORDERED: OXYTOCIN 30 UNITS/500 ML NS 30 UNIT in SALINE 1 500ML.BAG IV SCH (06:15)
[2020-10-27] MEDS: LACTATED RINGERS 1,000 ML IV SCH ×2 (06:20→15:03)
[2020-10-27 07:12] LABS: Basophils % (A) 0 %; Eosinophils # (A) 0.1 k/uL (0-0.7); Eosinophils % (A) 1 %; HCT 41.8 % (34.0-46.0); HGB 13.8 gm/dL (11.4-16.0); Lymphocytes # (A) 2.1 k/uL (1.0-4.8); Lymphocytes % (A) 19 %; MCH 30.4 pg (25.0-35.0); MCHC 33.1 g/dL (31.0-37.0); MCV 91.8 fL (80.0-100.0); Mean Platelet Volume 7.9; Monocytes # (A) 0.6 k/uL (0-1.0); Monocytes % (A) 5 %; Neutrophils # (A) 7.8 k/uL (1.3-7.7); Neutrophils % (A) 72 %; Platelet Count 295 k/uL (150-450); RBC 4.55 m/uL (3.80-5.40); RDW 14.1 % (11.5-15.5); WBC 10.7 k/uL (3.8-10.6)
--- NOTE | 2020-10-27 08:24 | P.HPOB ---
History of Present Illness H&P Date: 10/27/20 Chief Complaint: Induction of Labor 30 year old presents at 39 weeks 1 day for induction of labor. Her cervix is 3-4/70/-2 and she is didi irregularly. heart tones 140 with moderate variability and reactive. Review of Systems All systems: negative Constitutional: Denies chills, Denies fever Eyes: denies blurred vision, denies pain Ears, nose, mouth and throat: Denies headache, Denies sore throat Cardiovascular: Denies chest pain, Denies shortness of breath Respiratory: Denies cough Gastrointestinal: Denies abdominal pain, Denies diarrhea, Denies nausea, Denies vomiting Genitourinary: Denies dysuria, Denies hematuria Musculoskeletal: Denies myalgias Integumentary: Denies pruritus, Denies rash Neurological: Denies numbness, Denies weakness Psychiatric: Denies anxiety, Denies depression Endocrine: Denies fatigue, Denies weight change Past Medical History Past Medical History: No Reported History Additional Past Medical History / Comment(s): Obstetric history as follows: 1st VD, 2nd ectopic, 3rd SAB, 4th emergency , 5th , 6th ectopic, This is her seventh . Blood type O neg and did receive Rhogam on 08/18/20. Rub Imm, RPR Nr, Hep B neg, HIV Nr. History of Any Multi-Drug Resistant Organisms: None Reported Past Surgical History: Section, Cholecystectomy Additional Past Surgical History / Comment(s): Gallbladder removed , fallo pian tube removal Past Anesthesia/Blood Transfusion Reactions: No Reported Reaction Past Psychological History: No Psychological Hx Reported Smoking Status: Never smoker Past Alcohol Use History: None Reported Past Drug Use History: None Reported - Past Family History Mother Family Medical History: No Reported History Sister(s) Family Medical History: Hypertension Medications and Allergies Home Medications Medication Instructions Recorded Confirmed Type Pnv No.95/Ferrous Fum/Folic AC 1 each PO DAILY 10/03/20 10/27/20 History [ Multivitamin Tablet] Acetaminophen [Tylenol Extra 1,000 mg PO DAILY 10/19/20 10/27/20 History Strength] Allergies Allergy/AdvReac Type Severity Reaction Status Date / Time topiramate [From Topamax] Allergy Anaphylaxis Verified 10/27/20 06:07 Exam Osteopathic Statement: *. No significant issues noted on an osteopathic structural exam other than those noted in the History and Physical/Consult. Vital Signs Temp Pulse Resp BP 10/27/20 06:09 97.9 F 85 16 127/83 Intake and Output 10/26/20 10/27/20 10/27/20 22:59 06:59 14:59 Other: Weight 85.729 kg Heart: Regular rate and rhythm Lungs: Clear to auscultation bilaterally Abdomen: Soft, nontender Extremities: Negative Homans sign Results Result Diagrams: 10/27/20 06:53 Abnormal Lab Results - Last 24 Hours (Table) 10/27/20 Range/Units 06:53 WBC 10.7 H (3.8-10.6) k/uL Neutrophils # 7.8 H (1.3-7.7) k/uL Assessment and Plan (1) Encounter for induction of labor Current Visit: Yes Status: Acute Code(s): Z34.90 - ENCNTR FOR SUPRVSN OF NORMAL , UNSP, UNSP TRIMESTER SNOMED Code(s): 387584408 Plan: 1. induction of labor with amniotomy and pitocin. 2. anticipate normal vaginal delivery
[2020-10-27] MEDS ORDERED: BUTORPHANOL 1 MG/ML 1 ML VIAL IV PRN (10:02)
[2020-10-27] MEDS ORDERED: SIMETHICONE 80 MG CHEWABLE PO PRN (12:42)
[2020-10-27] MEDS ORDERED: HYDROCORTISONE 2.5% RECTAL CREAM 30 GM TUBE RECTAL PRN (12:42)
[2020-10-27] MEDS ORDERED: diphenhydrAMINE 50 MG CAP PO PRN (12:42)
[2020-10-27] MEDS ORDERED: BENZOCAINE/MENTHOL SPRAY 1 GM/SPRAY AEROSOL TOPICAL PRN (12:42)
[2020-10-27] MEDS ORDERED: ZOLPIDEM 5 MG TAB PO PRN (12:42)
[2020-10-27] MEDS ORDERED: LANOLIN CREAM 5 GM TUBE TOPICAL PRN (12:42)
[2020-10-27] MEDS ORDERED: diphenhydrAMINE 25 MG CAP PO PRN (12:42)
[2020-10-27] MEDS ORDERED: ACETAMINOPHEN TAB 325 MG TAB PO PRN (12:42)
[2020-10-27] MEDS ORDERED: diphenhydrAMINE 50 MG/ML 1 ML VIAL IVP PRN ×2 (12:42)
[2020-10-27] MEDS: IBUPROFEN 600 MG TAB PO PRN (14:05)
[2020-10-27] MEDS ORDERED: Rhogam IMMUNE GLOBULIN 1,500 UNIT/1 ML IM ONE (17:59)
[2020-10-28] MEDS: SENNOSIDES-DOCUSATE SODIUM 1 EACH TAB PO SCH ×3 (00:40→23:44)
[2020-10-28] MEDS: IBUPROFEN 600 MG TAB PO PRN ×3 (00:40→20:41)
[2020-10-28] MEDS: LACTATED RINGERS 1,000 ML IV SCH ×2 (01:14→23:47)
--- NOTE | 2020-10-28 08:30 | P.PROBDLV ---
Vaginal Delivery Note - . Vaginal Delivery Note: 30 year old presents at 39 weeks 1 day for induction of labor. Her cervix is 3-4/70/-2 and she is didi irregularly. heart tones 140 with moderate variability and reactive. Pitocin was started and amniotomy was performed at 7:22 AM clear fluid noted. When she was uncomfortable she did get an epidural. Her cervix was completely dilated at 12:00 and she precipitously delivered at 12:02 PM over intact perineum under epidural anesthesia. Entered the room and the baby was on the bed being suctioned and the nose and mouth. Apgars 9, 9, weight 7 lbs. 1 oz. Cord was clamped and cut placed on mother's abdomen. Placenta delivered spontaneously, intact with three-vessel cord at 12:06 PM. Vagina, cervix, perineum inspected. No lacerations noted. Estimated blood loss 150 mL. Mother and baby in stable condition.
--- NOTE | 2020-10-28 08:36 | P.DS ---
Providers Date of admission: 10/27/20 05:58 Expected date of discharge: 10/28/20 Attending physician: Katie Medina Primary care physician: Stated None - Discharge Diagnosis(es) (1) Encounter for induction of labor Current Visit: Yes Status: Resolved (2) (normal spontaneous vaginal delivery) Current Visit: No Status: Acute Hospital Course: Patient presented for induction of labor. She underwent normal vaginal delivery. course uncomplicated. She is ambulating voiding without difficulty, denies nausea, vomiting, chest pain, shortness of breath or any calf pain. She'll be discharged home day #1 in stable condition to follow-up with me in 6 weeks. Plan - Discharge Summary New Discharge Prescriptions: New Ibuprofen [Motrin] 600 mg PO Q6HR PRN #40 tab PRN Reason: Mild Pain (Scale 1 To 3) No Action Pnv No.95/Ferrous Fum/Folic AC [ Multivitamin Tablet] 1 each PO DAILY Acetaminophen [Tylenol Extra Strength] 1,000 mg PO DAILY Discharge Medication List Pnv No.95/Ferrous Fum/Folic AC [ Multivitamin Tablet] 1 each PO DAILY 10/03/20 [History] Acetaminophen [Tylenol Extra Strength] 1,000 mg PO DAILY 10/19/20 [History] Ibuprofen [Motrin] 600 mg PO Q6HR PRN #40 tab 10/28/20 [Rx] Follow up Appointment(s)/Referral(s): Katie Medina DO [Doctor of Osteopathic Medicine] - 6 Weeks Discharge Disposition: HOME SELF-CARE
[2020-10-29 09:46] VITALS: BP 142/81; PULSE 68; RESP 14; TEMP 99
[2020-10-29] MEDS: SENNOSIDES-DOCUSATE SODIUM 1 EACH TAB PO SCH (09:55)
== END 2020-10-29 11:05 | disposition home or self-care (01) | DRG 807 ==
LOC: 4FBP 05:58
PROVIDERS: ADMIT Obstetrics & Gynecology; ATTEND Obstetrics & Gynecology
PROC: 10E0XZZ Delivery of Products of Conception, External Approach (ICD-10-PCS; principal; 2020-10-28)
PROC: 3E033VJ Introduction of Other Hormone into Peripheral Vein, Percutaneous Approach (ICD-10-PCS; 2020-10-28)
PROC: 10907ZC Drainage of Amniotic Fluid, Therapeutic from Products of Conception, Via Natural or Artificial Opening (ICD-10-PCS; 2020-10-28)
PROC: 10907ZC Drainage of Amniotic Fluid, Therapeutic from Products of Conception, Via Natural or Artificial Opening (ICD-10-PCS; 2020-10-28)
DX: O34.219 Maternal care for unspecified type scar from previous cesarean delivery (principal); Z37.0 Single live birth; O62.3 Precipitate labor; Z88.8 Allergy status to other drugs, medicaments and biological substances; O26.893 Other specified pregnancy related conditions, third trimester; Z3A.39 39 weeks gestation of pregnancy; Z67.41 Type O blood, Rh negative; Z90.49 Acquired absence of other specified parts of digestive tract; Z87.19 Personal history of other diseases of the digestive system; Z87.59 Personal history of other complications of pregnancy, childbirth and the puerperium
CPT/HCPCS: 85025; 85461; 86850; 86900; 86901